=== PATIENT | female | born 1960 | race Caucasian/White ===

== ENCOUNTER → 2017-09-11 09:46 | Outpatient (CLI) | payer OTHER, SELFPAY ==
[2017-09-11 10:45] LABS: ALB/GLOB Ratio 0.9 RATIO (0.9-2.4); AST(SGOT) 15 U/L (15-37); Alanine Aminotransfer ALT/SGPT 24 U/L (13-56); Albumin, Serum 3.8 g/dL (3.2-5.0); Alkaline Phosphatase 95 U/L (45-117); Anion Gap 8 (5-15); BUN 12 mg/dL (7-18); BUN/Creat Ratio 11.8 RATIO (10-20); Calcium,Total 9.3 mg/dL (8.5-10.1); Chloride 105 mmol/L (98-107); Cholesterol 241 mg/dL (200); Creatinine, Serum 1.02 mg/dL (0.55-1.02); EST Glomerular Filtration Rate 59 mL/min (>60); Est Glom Filt Rate - Afr Amer 71 mL/min (>60); Globulin 4.1 g/dL (2.2-4.2); Glucose 106 mg/dL (74-106); High Density Lipoprotein 37 mg/dL; Potassium 3.9 mmol/L (3.5-5.1); Protein, Total 7.9 g/dL (6.4-8.2); Sodium Level 139 mmol/L (136-145); Thyroid Stim Hormone (TSH) 1.49 uIU/mL (0.358-3.74); Triglycerides 259 mg/dL; Very Low Density Lipoprotein 52 mg/dL (5-40)
[2017-09-12 10:39] LABS: Vitamin D,25 Hydroxy 54.6 ng/mL (19.95-100.01)
== END ==
PROVIDERS: Family Provider Internal Medicine; PCP Internal Medicine; Visit Provider Internal Medicine Endocrinology, Diabetes & Metabolism
DX: E03.8 Other specified hypothyroidism (principal); E55.9 Vitamin D deficiency, unspecified; E78.00 Pure hypercholesterolemia, unspecified
CPT/HCPCS: 36415; 80053; 80061; 82306; 84443

== ENCOUNTER → 2018-05-15 16:10 | Outpatient (CLI) | payer OTHER, SELFPAY ==
--- NOTE | 2018-05-15 16:34 | BI_ITS ---
MAMMOGRAPHY - BILATERAL SCREENING REASON FOR EXAM: Female, 57 years old. Routine annual screening examination. PERTINENT HISTORY: Aunt with breast cancer. Remote right excisional breast biopsy. TECHNIQUE: Digital bilateral breast grady (3D mammographic acquisition) in the CC and MLO projections. 2-D mediolateral oblique (MLO) and craniocaudad (CC) views of both breasts were obtained. CAD: Full Field Digital Mammography with Computer Added Detection was performed. COMPARISON: Comparison is made with prior study dated September 04, 2016 and May 10, 2015. FINDINGS: Breast Composition: The breasts are heterogeneously dense, which may obscure small masses. There are no dominant masses or suspicious calcifications. No other significant abnormalities are identified. There has been no significant change since the prior study. BI/SCREENING MAMM (CAD), BILAT IMPRESSION: Stable bilateral screening mammogram. Yearly follow-up mammogram recommended. (A) ASSESSMENT CATEGORY: BIRADS Category 1: Negative. A letter regarding these results will be sent to the patient by the facility within 30 days. Approximately 10% of breast cancers are not detected by mammography. A normal mammogram should not delay biopsy of a clinically suspicious abnormality. [id number] Electronically Signed: Demetrius Jackson MD at 8:17 EDT Tel [phone], Service support ,
== END ==
PROVIDERS: Family Provider Internal Medicine; PCP Internal Medicine; Referring Provider Internal Medicine; Visit Provider Internal Medicine
DX: Z12.31 Encounter for screening mammogram for malignant neoplasm of breast (principal)
CPT/HCPCS: 77063; 77067

== ENCOUNTER → 2018-06-10 07:24 | Outpatient (CLI) | payer OTHER, SELFPAY ==
[2018-06-10 09:20] LABS: ALB/GLOB Ratio 0.9 RATIO (0.9-2.4); AST(SGOT) 16 U/L (15-37); Alanine Aminotransfer ALT/SGPT 32 U/L (13-56); Albumin, Serum 3.6 g/dL (3.2-5.0); Alkaline Phosphatase 91 U/L (45-117); Anion Gap 13 (5-15); BUN 9 mg/dL (7-18); BUN/Creat Ratio 9.1 RATIO (10-20); Calcium,Total 8.4 mg/dL (8.5-10.1); Chloride 105 mmol/L (98-107); Cholesterol 199 mg/dL (200); Creatinine, Serum 0.98 mg/dL (0.55-1.02); EST Glomerular Filtration Rate 61 mL/min (>60); Est Glom Filt Rate - Afr Amer 74 mL/min (>60); Globulin 3.9 g/dL (2.2-4.2); Glucose 102 mg/dL (74-106); High Density Lipoprotein 34 mg/dL; Potassium 3.8 mmol/L (3.5-5.1); Protein, Total 7.5 g/dL (6.4-8.2); Sodium Level 144 mmol/L (136-145); Thyroid Stim Hormone (TSH) 1.24 uIU/mL (0.358-3.74); Triglycerides 227 mg/dL; Very Low Density Lipoprotein 45 mg/dL (5-40)
== END ==
PROVIDERS: Family Provider Internal Medicine; PCP Internal Medicine; Referring Provider Internal Medicine Endocrinology, Diabetes & Metabolism; Visit Provider Internal Medicine Endocrinology, Diabetes & Metabolism
DX: E03.8 Other specified hypothyroidism (principal); E78.2 Mixed hyperlipidemia
CPT/HCPCS: 36415; 80053; 80061; 84443

== ENCOUNTER → 2018-09-05 17:14 | Outpatient (CLI) | payer OTHER, SELFPAY ==
[2018-09-05 17:39] LABS: Bacteria 0 SEEN /hpf (None Seen); Mucous, Urine 0 SEEN /hpf (<or=2+); Red Blood Cells-Urine 0 SEEN /hpf (0-5); Squamous Epithelial Cells - UA 0 SEEN /hpf (5-10); White Blood Cells 0 SEEN /hpf (0-5)
[2018-09-05 18:58] LABS: Color, Urine Straw (Yellow); Glucose, Dipstick Normal (Normal); Ketone-Dipstick Negative (Negative); Leukocyte Esterase-Dipstick 500 /ul (Negative); Nitrite-Dipstick Negative (Negative); Occult Blood-Urine Negative /ul (Negative); Protein-Dipstick Negative (Negative); Specific Gravity, Urine 1.005 (1.002-1.030); Urine Bilirubin Dipstick Negative (Negative); Urine Clarity Clear (Clear); Urine Urobilinogen Normal (Normal)
== END ==
PROVIDERS: Family Provider Internal Medicine; PCP Internal Medicine; Referring Provider Internal Medicine; Visit Provider Internal Medicine
DX: R31.29 Other microscopic hematuria (principal)
CPT/HCPCS: 81001

== ENCOUNTER → 2018-11-12 | Outpatient (CLI) | payer OTHER, SELFPAY ==
--- NOTE | 2018-11-12 11:00 | RAD_ITS ---
STUDY: X-RAY - ABDOMEN/PELVIS REASON FOR EXAM: Female, 57 years old. Hematuria. History of kidney stones in both kidneys. TECHNIQUE: 2, supine frontal projections encompassing the abdomen and pelvis. COMPARISON: November 04, 2012. FINDINGS: Except for multiple small, bilateral calcified pelvic phleboliths, there are no additional pathologic calcifications. There is an unremarkable bowel gas pattern. Air and stool are identified within the rectum. There is no gross free air on these supine views. There is no plain film evident intra-abdominal mass or mass effect. No acute osseous abnormality. RAD/Abdomen Single View IMPRESSION: No pathologic calcifications overlying either renal outline or the expected course of either ureter. Multiple mid pelvic paramedian tiny calcified phleboliths. No evident obstruction. No gross free air on either of these supine views. Electronically Signed: Domingo Ortiz MD at 12:51 EDT , Service support ,
== END | disposition home or self-care (01) ==
LOC: RAD 10:52
PROVIDERS: Family Provider Internal Medicine; PCP Internal Medicine; Referring Provider Urology; Visit Provider Urology
DX: N20.0 Calculus of kidney (principal); R31.0 Gross hematuria
CPT/HCPCS: 74018

== ENCOUNTER 2018-11-26 11:50 | Emergency (ER) | payer OTHER, SELFPAY ==
--- NOTE | 2018-11-26 11:50 | EKG12_ITS ---
Test Reason : CP Blood Pressure : / mmHG Vent. Rate : 076 BPM Atrial Rate : 076 BPM P-R Int : 174 ms QRS Dur : 076 ms QT Int : 388 ms P-R-T Axes : 071 064 092 degrees QTc Int : 436 ms Normal sinus rhythm Normal ECG Confirmed by JAMIE MCINTOSH ([id number]), acquisitions editor AMIRA ORELLANA ([id number]) on 12/03/2018 9:12:28 AM Referred By: KINJAL Confirmed By:JAMIE MCINTOSH
[2018-11-26 11:51] VITALS: BP 158/83; PULSE 79; RESP 19; TEMP 36.9; O2SAT 98; BMI 32.0
--- NOTE | 2018-11-26 12:01 | ED.VIS.GEN ---
History of Present Illness Chief Complaint: Chest Pain Detail of Chief Complaint: Chief complaint is posterior right shoulder pain not chest pain Informant: Patient Onset: Today - 829 Context: Sudden Onset Timing: Continuous Quality: Pain Location: Posterior right shoulder Current Severity: Mild Maximum Severity: Severe Worsened by: Nothing per patient Relieved by: Nothing per patient Associated Symptoms: At onset had nausea Narrative: Patient is a middle-aged woman who presents with atraumatic acute posterior right shoulder pain. She has had this in the past. She is been told this is muscle. She was concerned because the pain was more intense today. She denies paresthesia, anesthesia or motor weakness. She denies chest pain. She denies shortness of breath. She denies orthopnea or PND. She denies history of coronary disease. He does have history of blood clots. She denies leg pain, swelling discoloration. She denies pleuritic chest pain. She does not have a clotting disorder. She denies neck pain. Prior similar symptoms: Yes Recent Illness/Hospitalization: No - Past Medical History (1) ADHD (attention deficit hyperactivity disorder) Status: Chronic (2) Fibromyalgia Status: Chronic (3) History of anxiety Status: Chronic Past Medical History - Allergies and Home Meds Allergies/Adverse Reactions: Allergies pindolol Allergy (Verified 11/26/18 11:54) Other quetiapine [From Seroquel] Allergy (Verified 11/26/18 11:54) Other Primary Care Physician: Echo Moses DO [Primary Care Provider] - Prior records reviewed: Yes Surgical History: noncontributory Lives: Alone Smoking Status: Never smoker Alcohol: None Review of Systems General: Denies: Chills, Fever, Malaise, Sweats, Weight loss Eyes: Denies: Visual changes - bilaterally, Blurred Vision - bilaterally, Diplopia ENT: Denies: Rhinorrhea, Sore throat Cardiovascular: Denies: Chest pain, Heart racing Respiratory: Denies: Dyspnea, Cough, Dyspnea on exertion, Orthopnea, Paroxysmal nocturnal dyspnea Musculoskeletal: Reports: Myalgias. Denies: Arthralgias, Neck pain, Back pain, Swelling, Extremity Pain Skin: Denies: Rash, Wounds Neurological: Denies: Weakness, Parasthesia, Numbness Psych: Reports: Depression, Anxiety Hematologic: Denies: Easy bruising, Easy bleeding Allergy: Denies: Uticaria, Swelling of the mouth Physical Exam Vital Signs/Narrative: Vital Signs Temp Pulse Resp BP Pulse Ox 11/26/18 11:51 98.4 F 79 19 H 158/83 H 98 Inital Vital Signs reviewed: Yes General: Well nourished, Well developed, No Acute Distress Head: Normocephalic, Atraumatic Eyes: Perrl, EOMI. Negative for: Pale conjunctiva, Scleral icterus ENT: Moist mucous membranes, No rhinorrhea Neck: Supple, Nontender, No lymphadenopathy, No JVD Cardiovascular: Regular rate, Regular rhythm, No murmurs, Normal S1, Normal S2 Respiratory: No distress, CTA bilaterally, Chest nontender Extremities: Nontender, No edema, - - There is no asymmetry, swelling, discoloration, leg vein distention, palpable cords or tenderness along the distribution of the deep venous system. Patient has reproducible pain over the trapezius latissimus muscle on the right. Stressing these muscles causes her increased pain and reproduces the pain she is experiencing. Axillary, median, radial and ulnar function intact. Skin: Normal color, No rash, No Trauma Neurological: Alert, Oriented x3, Cranial nerves II-XII grossly intact, Normal Strength, Normal Sensation Psychological: Normal affect, Normal Mood ED Disposition - Plan for ED Patient: Referrals: Echo Moses DO [Primary Care Provider] -
[2018-11-26 12:07] VITALS: BP 135/68; PULSE 79; RESP 23; O2SAT 95
--- NOTE | 2018-11-26 12:08 | ED.DEP ---
ED Disposition - Plan for ED Patient: Disposition: Home or Assisted Living Diagnosis: Musculoskeletal disorder involving upper trapezius muscle Instructions: ED Strain Muscle Ext Referrals: Echo Moses DO [Primary Care Provider] - As Needed
[2018-11-26 12:41] VITALS: BP 122/75; PULSE 82; RESP 24; O2SAT 93
== END 2018-11-26 12:43 | disposition home or self-care (01) ==
LOC: ED 12:28
PROVIDERS: Emergency Provider Emergency Medicine; Family Provider Internal Medicine; PCP Internal Medicine
DX: M25.511 Pain in right shoulder (principal); S29.012A Strain of muscle and tendon of back wall of thorax, initial encounter; M79.7 Fibromyalgia; Z86.718 Personal history of other venous thrombosis and embolism; X58.XXXA Exposure to other specified factors, initial encounter; Y93.89 Activity, other specified; Y92.89 Other specified places as the place of occurrence of the external cause; Y99.8 Other external cause status
CPT/HCPCS: 93005; 99283

== ENCOUNTER → 2018-12-30 | Outpatient (CLI) | payer OTHER, SELFPAY ==
[2018-12-30 10:32] LABS: Vitamin D,25 Hydroxy 29.7 ng/mL (29.95-100.01)
[2018-12-30 10:41] LABS: ALB/GLOB Ratio 0.9 RATIO (0.9-2.4); AST(SGOT) 19 U/L (15-37); Alanine Aminotransfer ALT/SGPT 31 U/L (13-56); Albumin, Serum 3.7 g/dL (3.2-5.0); Alkaline Phosphatase 92 U/L (45-117); Anion Gap 11 (5-15); BUN 10 mg/dL (7-18); BUN/Creat Ratio 10.8 RATIO (10-20); Calcium,Total 8.6 mg/dL (8.5-10.1); Chloride 107 mmol/L (98-107); Cholesterol 204 mg/dL (200); Creatinine, Serum 0.92 mg/dL (0.55-1.02); EST Glomerular Filtration Rate 66 mL/min (>60); Est Glom Filt Rate - Afr Amer 80 mL/min (>60); Globulin 3.9 g/dL (2.2-4.2); Glucose 118 mg/dL (74-106); High Density Lipoprotein 39 mg/dL; Potassium 3.9 mmol/L (3.5-5.1); Protein, Total 7.6 g/dL (6.4-8.2); Sodium Level 142 mmol/L (136-145); Thyroid Stim Hormone (TSH) 1.63 uIU/mL (0.358-3.74); Triglycerides 191 mg/dL; Very Low Density Lipoprotein 38 mg/dL (5-40)
== END | disposition home or self-care (01) ==
LOC: LAB 09:01
PROVIDERS: Family Provider Internal Medicine; PCP Internal Medicine; Referring Provider Internal Medicine Endocrinology, Diabetes & Metabolism; Visit Provider Internal Medicine Endocrinology, Diabetes & Metabolism
DX: E03.8 Other specified hypothyroidism (principal); E78.2 Mixed hyperlipidemia; E55.9 Vitamin D deficiency, unspecified
CPT/HCPCS: 36415; 80053; 80061; 82306; 84443

== ENCOUNTER 2019-03-13 09:29 | Emergency (ER) | payer OTHER, SELFPAY ==
[2019-03-13 09:31] VITALS: BP 155/84; PULSE 75; RESP 14; TEMP 36.2; O2SAT 97; BMI 32.2
--- NOTE | 2019-03-13 09:43 | EKG12_ITS ---
Test Reason : DYSRHYTHMIA Blood Pressure : / mmHG Vent. Rate : 074 BPM Atrial Rate : 074 BPM P-R Int : 180 ms QRS Dur : 080 ms QT Int : 396 ms P-R-T Axes : 044 071 100 degrees QTc Int : 439 ms Normal sinus rhythm Nonspecific T wave abnormality Abnormal ECG Confirmed by KORTNEY PALMER, DEBRA ([id number]), film editor supervisor BELINDA MANCERA ([id number]) on 03/17/2019 11:22:14 A M Referred By: STACI Confirmed By:SADA SHEETS MD
--- NOTE | 2019-03-13 09:44 | ED.VIS.DYS ---
History of Present Illness Chief Complaint: Shortness of Breath Informant: Patient Onset: Yesterday Activity at onset: Light Activity Timing: Intermittent Quality: Dyspnea on exertion Current Severity: Gone Maximum Severity: Severe Worsened by: Exertion. Not Worsened By: Coughing, Lying flat Relieved by: Rest Associated Symptoms: Negative for: Cough, Fever, Rhinorrhea, Sore throat Chest Pain: None Narrative: Significant exertional dyspnea since yesterday. Also yesterday while walking, she noticed that her right leg was hurting from her calf along the medial aspect of her knee/popliteal area and into her medial thigh. She states today, that is not bothering her. She never had any swelling in the leg. Concerned that she might have a pulmonary embolus causing this because she has otherwise been well, and she had one in the past. Patient states she thinks it was provoked by being on hormone replacement therapy for 2 weeks at that time. She is a non-smoker. - Past Medical History (1) Pulmonary embolism Status: Resolved (2) ADHD (attention deficit hyperactivity disorder) Status: Chronic (3) Fibromyalgia Status: Chronic (4) History of anxiety Status: Chronic Past Medical History - Allergies and Home Meds Allergies/Adverse Reactions: Allergies pindolol Allergy (Verified 03/13/19 09:31) Other quetiapine [From Seroquel] Allergy (Verified 03/13/19 09:31) Other Primary Care Physician: Echo Moses DO [Primary Care Provider] - Surgical History: noncontributory Lives: Spouse/ Significant Other Smoking Status: Never smoker Review of Systems General: Denies: Chills, Fever, Sweats Eyes: Denies: Visual changes - bilaterally, Diplopia ENT: Denies: Rhinorrhea, Sore throat Cardiovascular: Denies: Chest pain, Palpitations, Heart racing Respiratory: Reports: Dyspnea, Dyspnea on exertion. Denies: Cough Gastrointestinal: Denies: Abdominal pain, Nausea, Vomiting, Diarrhea, Melena, Hematochezia Genitourinary: Denies: Dysuria, Hematuria, Frequency Musculoskeletal: Reports: Extremity Pain - RLE yest. gone now.. Denies: Back pain, Swelling Skin: Denies: Rash, Wounds Neurological: Denies: Headache, Weakness, Numbness Physical Exam Vital Signs/Narrative: Vital Signs Temp Pulse Resp BP Pulse Ox 03/13/19 09:31 97.1 F L 75 14 155/84 H 97 Inital Vital Signs reviewed: Yes General: Well nourished, Well developed, No Acute Distress - Well-appearing, conversive in full sentences Head: Normocephalic, Atraumatic Eyes: Perrl, EOMI ENT: Moist mucous membranes, No rhinorrhea Neck: Supple, Nontender, No JVD Cardiovascular: Regular rate, Regular rhythm, Normal S1, Normal S2, Murmur - 1/6 systolic ejection. Negative for: Tachycardia Respiratory: No distress, CTA bilaterally, Chest nontender, - - No splinting on deep inspiration Abdomen: Soft, Nontender, Nondistended, Normal bowel sounds Back: Nontender, Normal Inspection Extremities: Nontender - And normal inspection, no palpable cords, No edema. Negative for: Tenderness, Calf Tenderness Skin: Normal color, No rash, No Trauma Neurological: Alert, Oriented x3, Cranial nerves II-XII grossly intact, Normal Strength, Normal Sensation, Normal Gait Psychological: Normal affect, Normal Mood Diagnostic/Tx/Re-eval Impressions Chest X-Ray 03/13/19 10:20 IMPRESSION: No acute cardiopulmonary findings Electronically Signed: Uriel Frost DO at 10:47 EDT Tel , Service support , Chest CTA 03/13/19 11:13 IMPRESSION: Normal CTA chest examination, without a demonstrated pulmonary embolism or arterial dissection. Electronically Signed: Jim Auguste MD at 12:55 EDT Tel , Service support , 03/13/19 10:20 Chest PA and Lateral [RAD] Stat 03/13/19 11:13 CTA Chest W/WO Contrast [CT] Stat Laboratory Results 03/13/19 03/13/19 03/13/19 09:50 09:50 09:50 WBC 4.8 RBC 4.99 Hgb 13.5 Hct 41.8 MCV 83.8 MCH 27.1 MCHC 32.3 RDW Std Deviation 45.6 H RDW Coeff of Jennifer 15.0 H Plt Count 244 MPV 9.8 Immature Gran % (Auto) 0.400 Neut % (Auto) 59.4 Lymph % (Auto) 30.4 Taylor % (Auto) 7.7 Eos % (Auto) 1.9 Baso % (Auto) 0.2 Absolute Neuts (auto) 2.9 Absolute Lymphs (auto) 1.47 Nucleated RBC % 0 D-Dimer Quant (PE/DVT) < 0.27 L Sodium 143 Potassium 3.9 Chloride 110 H Carbon Dioxide 26.0 Anion Gap 7 BUN 8 Creatinine 0.90 Estim Creat Clear Calc 50.16 Est GFR (MDRD) Af Amer 82 Est GFR (MDRD) Non-Af 68 BUN/Creatinine Ratio 8.9 L Glucose 112 H Calcium 8.6 Troponin I < 0.015 - Rhythm Strip Rhythm Strip: Sinus Rhythm Rate: 74 Ectopy: None - EKG Initial EKG Interpretation: Sinus Rhythm, No Acute Injury Pattern, Inverted T-Waves - laterally Prior: Changed - Medical Decision Making The patient does not have any dyspnea with walking today. This all occurred yesterday. Given the well's criteria, I think pulmonary embolus is not the most likely scenario here, therefore since she has a history of 1 and no signs or actual symptoms of a DVT acutely, her score is 1.5, making her appropriate for a d-dimer. This was obtained and is negative, below the lower limit of normal even. However, the patient is very anxious and wants a CT angiography of the chest anyway. We discussed risks of this, which I was trying to avoid her being exposed to, and we discussed all of this thoroughly and she understands the risks and wants the test. It was obtained and is normal showing no signs of a pulmonary embolus. Given the negative d-dimer, additionally she does not need to get the outpatient Doppler ultrasound of her lower extremity that she was scheduled for today and missed because of being in the emergency department. I discussed that with her but that will be up to her and her physician who she was advised to follow-up with. Not able to rule out a transient dysrhythmia, although she was only having symptoms when she exerted herself. I asked her if she could be having anxiety attacks she states no. Since she is asymptomatic at this time I think it is okay to discharge her home and have her follow-up. ED Disposition - Plan for ED Patient: Disposition: Home or Assisted Living Diagnosis: Dyspnea on exertion Instructions: ED Dyspnea Referrals: Echo Moses, [Primary Care Provider] - 1-2 Days if not improving
[2019-03-13 09:59] LABS: Absolute Lymphocyte Count 1.47 X10^3/uL (0.83-4.51); Absolute Neutrophil Count 2.9 X10^3/uL (2.0-7.7); Basophil# 0.01 X10^3/uL; Basophil% 0.2 % (0-1); Eosinophil# 0.09 X10^3/uL; Eosinophils% 1.9 % (0-5); Hematocrit 41.8 % (37-47); Hemoglobin 13.5 g/dL (12.0-15.0); Lymphocyte # 1.47 X10^3/ul (4.0); Lymphocyte % 30.4 % (19-41); Mean Corp Hgb Conc 32.3 g/dL (32-36); Mean Corpuscular Hgb 27.1 pg (27.0-32.0); Mean Corpuscular Volume 83.8 fL (81-99); Mean Platelet Vol. 9.8 fl (6.2-12.0); Monocyte# 0.37 X10^3/uL; Monocyte% 7.7 % (0-10); NRBC Flagged by Analyzer 0 % (0-5); Neutrophil # 2.87 X10^3/uL (2.7-7.7); Neutrophil % 59.4 % (47-70); Platelet Count 244 K/mm3 (150-450); RBC Distribution Width SD 45.6 fl (35.1-43.9); Red Blood Count 4.99 M/mm3 (4.2-5.4); White Blood Count 4.8 K/mm3 (4.4-11.0)
[2019-03-13 10:14] LABS: D-Dimer Quantitative (DVT/PE) < 0.27 FEU/ug/m (0.27-0.49)
[2019-03-13 10:20] LABS: Anion Gap 7 (5-15); BUN 8 mg/dL (7-18); BUN/Creat Ratio 8.9 RATIO (10-20); Calcium,Total 8.6 mg/dL (8.5-10.1); Chloride 110 mmol/L (98-107); EST Glomerular Filtration Rate 68 mL/min (>60); Est Glom Filt Rate - Afr Amer 82 mL/min (>60); Estimated Creatinine Clearance 50.16 ml/min; Glucose 112 mg/dL (74-106); Potassium 3.9 mmol/L (3.5-5.1); Sodium Level 143 mmol/L (136-145)
--- NOTE | 2019-03-13 10:20 | RAD_ITS ---
STUDY: X-RAY CHEST REASON FOR EXAM: Female, 58 years old. Shortness of breath. TECHNIQUE: PA and lateral views of the chest. COMPARISON: CTA dated June 11, 2014. FINDINGS: Cardiac silhouette unremarkable. Pulmonary vascularity unremarkable. Aorta unremarkable. No focal patchy airspace opacities. No pleural effusions. Slightly coarse lung markings with minimal atelectasis. Upper abdomen unremarkable. Osseous structures intact. No pneumothorax. RAD/Chest PA and Lateral IMPRESSION: No acute cardiopulmonary findings Electronically Signed: Uriel Frost DO at 10:47 EDT Tel , Service support ,
--- NOTE | 2019-03-13 11:13 | CT_ITS ---
STUDY: CTA CHEST REASON FOR EXAM: Female, 58 years old. Shortness of breath RADIATION DOSAGE (If Supplied By Facility): CTDIvol = ( 9.46 ) mGy, DLP = ( 356.41 ) mGycm TECHNIQUE: The examination was performed with the intravenous administration of 75cc IV Isovue 370. Post-processing of the angiographic images was performed, with multiplanar reformation and 3D reconstruction. Individualized dose optimization techniques were used for this CT. COMPARISON: 06/11/2014 FINDINGS: Normal enhancement of the main pulmonary artery and right and left pulmonary arteries. Normal enhancement of the bilateral peripheral pulmonary arteries. There is no demonstrated pulmonary embolism. Normal thoracic aorta and visualized great vessels. There is no demonstrated aortic dissection. Normal heart and pericardium. Normal mediastinum. Normal hilar regions. Normal visualized trachea and bronchi. The lungs are well expanded. Normal pulmonary parenchyma. Normal pleura. Normal chest wall structures. Normal osseous structures. Normal visualized upper abdomen. CT/CTA Chest W/WO Contrast IMPRESSION: Normal CTA chest examination, without a demonstrated pulmonary embolism or arterial dissection. Electronically Signed: Jim Auguste MD at 12:55 EDT Tel , Service support ,
[2019-03-13] MEDS: 0.9% Normal Saline 1,000 ML 999 ML IV (11:27)
[2019-03-13 11:44] VITALS: BP 141/88; PULSE 78; RESP 16; O2SAT 98
[2019-03-13 13:03] VITALS: BP 141/94; PULSE 74; RESP 18; O2SAT 96
[2019-03-13 13:26] VITALS: BP 141/88; PULSE 87; RESP 18; O2SAT 98
== END 2019-03-13 13:28 | disposition home or self-care (01) ==
PROVIDERS: Emergency Provider Emergency Medicine; Family Provider Internal Medicine; PCP Internal Medicine
DX: R06.09 Other forms of dyspnea (principal); F90.9 Attention-deficit hyperactivity disorder, unspecified type; M79.7 Fibromyalgia; F41.9 Anxiety disorder, unspecified; Z86.711 Personal history of pulmonary embolism; Z79.899 Other long term (current) drug therapy
CPT/HCPCS: 71046; 71275; 80048; 84484; 85025; 85379; 93005; 96360; 96361; 99284; J7030; Q9967; A4216

== ENCOUNTER → 2019-08-06 08:30 | Outpatient (CLI) | payer OTHER, SELFPAY ==
[2019-08-06 09:50] LABS: ALB/GLOB Ratio 1.1 RATIO (0.9-2.4); AST(SGOT) 15 U/L (15-37); Alanine Aminotransfer ALT/SGPT 29 U/L (13-56); Albumin, Serum 3.9 g/dL (3.2-5.0); Alkaline Phosphatase 93 U/L (45-117); Anion Gap 4 (5-15); BUN 8 mg/dL (7-18); Calcium,Total 8.7 mg/dL (8.5-10.1); Chloride 109 mmol/L (98-107); Cholesterol 204 mg/dL (200); EST Glomerular Filtration Rate 60 mL/min (>60); Est Glom Filt Rate - Afr Amer 73 mL/min (>60); Globulin 3.7 g/dL (2.2-4.2); Glucose 121 mg/dL (74-106); High Density Lipoprotein 39 mg/dL; Potassium 3.9 mmol/L (3.5-5.1); Protein, Total 7.6 g/dL (6.4-8.2); Sodium Level 140 mmol/L (136-145); Triglycerides 147 mg/dL; Very Low Density Lipoprotein 29 mg/dL (5-40)
[2019-08-06 10:06] LABS: Vitamin D,25 Hydroxy 36.9 ng/mL (29.95-100.01)
== END ==
PROVIDERS: Family Provider Internal Medicine; PCP Internal Medicine; Referring Provider Internal Medicine Endocrinology, Diabetes & Metabolism; Visit Provider Internal Medicine Endocrinology, Diabetes & Metabolism
DX: E03.8 Other specified hypothyroidism (principal); N20.0 Calculus of kidney; E55.9 Vitamin D deficiency, unspecified
CPT/HCPCS: 36415; 80053; 80061; 82306; 84443

== ENCOUNTER 2019-08-20 21:24 | Emergency (ER) | payer OTHER, SELFPAY ==
[2019-08-20 21:25] VITALS: BP 152/81; PULSE 109; RESP 16; TEMP 37.4; O2SAT 97; BMI 32.1
[2019-08-20 21:43] LABS: Bacteria 0 SEEN /hpf (None Seen); Mucous, Urine 0 SEEN /hpf (<or=2+)
[2019-08-20 21:45] LABS: Color, Urine Yellow (Yellow); Glucose, Dipstick Normal (Normal); Ketone-Dipstick Negative (Negative); Leukocyte Esterase-Dipstick 100 /ul (Negative); Nitrite-Dipstick Negative (Negative); Occult Blood-Urine 150 /ul (Negative); Protein-Dipstick 30 mg/dl (Negative); Urine Bilirubin Dipstick Negative (Negative); Urine Clarity Clear (Clear); Urine Urobilinogen Normal (Normal)
[2019-08-20 22:05] LABS: White Blood Cells 0-5 SEEN /hpf (0-5)
[2019-08-20 22:06] LABS: Red Blood Cells-Urine 5-10 SEEN /hpf (0-5); Squamous Epithelial Cells - UA 0-5 SEEN /hpf (5-10)
[2019-08-20 22:16] LABS: Absolute Lymphocyte Count 1.92 X10^3/uL (0.83-4.51); Absolute Neutrophil Count 6.6 X10^3/uL (2.0-7.7); Basophil# 0.02 X10^3/uL; Basophil% 0.2 % (0-1); Eosinophil# 0.05 X10^3/uL; Eosinophils% 0.5 % (0-5); Hemoglobin 14.5 g/dL (12.0-15.0); Lymphocyte # 1.92 X10^3/ul (4.0); Lymphocyte % 20.4 % (19-41); Mean Corp Hgb Conc 33.7 g/dL (32-36); Mean Corpuscular Hgb 28.4 pg (27.0-32.0); Mean Corpuscular Volume 84.3 fL (81-99); Mean Platelet Vol. 9.8 fl (6.2-12.0); Monocyte% 8.5 % (0-10); NRBC Flagged by Analyzer 0 % (0-5); Neutrophil # 6.58 X10^3/uL (2.7-7.7); Neutrophil % 70.2 % (47-70); Platelet Count 267 K/mm3 (150-450); RBC Distribution Width CV 14.2 % (11.6-14.6); RBC Distribution Width SD 43.8 fl (35.1-43.9); White Blood Count 9.4 K/mm3 (4.4-11.0)
[2019-08-20 22:30] LABS: Anion Gap 4 (5-15); BUN 9 mg/dL (7-18); BUN/Creat Ratio 8.8 RATIO (10-20); Chloride 105 mmol/L (98-107); Creatinine, Serum 1.02 mg/dL (0.55-1.02); EST Glomerular Filtration Rate 59 mL/min (>60); Est Glom Filt Rate - Afr Amer 71 mL/min (>60); Estimated Creatinine Clearance 44.26 ml/min; Glucose 89 mg/dL (74-106); Potassium 3.9 mmol/L (3.5-5.1); Sodium Level 137 mmol/L (136-145)
--- NOTE | 2019-08-20 22:55 | ED.DCSUM_ITS ---
History of Present Illness Chief Complaint: Abd Pain Informant: Patient - Abdominal Pain/Flank Pain Onset: Today Context: Gradual Onset Timing: Continuous Quality: Aching Location: Epigastric Current Severity: Mild Maximum Severity: Mild Worsened by: Nothing Relieved by: Nothing - tried no medications - Nausea/Vomiting/Emesis GI Symptom: Nausea. Negative for: Vomiting Onset: Days - 5 - Diarrhea/Melena/Hematochezia GI Symptom: - - last BM 3-4 hrs ago, no change on sx. Negative for: Diarrhea, Melena, Hematochezia Associated Symptoms: Negative for: Dysuria, Frequency, Hematuria, Urgency Narrative: Patient states she has felt nauseated for the last 5 days or so, it has not affected her appetite or ability to eat. She developed upper abdominal discomfort today. Progresses to the right. No radiation otherwise. She has not tried any medications or antacids at home prior to coming here. No history of any abdominal surgeries in the past. - Past Medical History (1) Hypothyroidism Status: Chronic (2) ADHD (attention deficit hyperactivity disorder) Status: Chronic (3) Fibromyalgia Status: Chronic (4) History of anxiety Status: Chronic (5) Pulmonary embolism Status: Resolved Past Medical History - Allergies and Home Meds Allergies/Adverse Reactions: Allergies pindolol Allergy (Verified 08/20/19 21:28) Other quetiapine [From Seroquel] Allergy (Verified 08/20/19 21:28) Other epinephrine Adverse Reaction (Verified 08/20/19 21:28) Other Primary Care Physician: Echo Moses DO [Primary Care Provider] - Surgical History: - - parathyroid gland excision (for hyperparathyroidism) Smoking Status: Never smoker Alcohol: None Review of Systems General: Denies: Chills, Fever, Sweats Eyes: Denies: Visual changes - bilaterally, Diplopia ENT: Denies: Bilateral ear pain, Rhinorrhea, Sore throat Cardiovascular: Denies: Chest pain, Palpitations Respiratory: Reports: Cough - chronic, mild, unchanged. Denies: Dyspnea, Sputum, Dyspnea on exertion, Orthopnea Gastrointestinal: Reports: Abdominal pain, Nausea. Denies: Vomiting, Diarrhea, Melena, Hematochezia Genitourinary: Denies: Dysuria, Hematuria, Frequency Musculoskeletal: Reports: Back pain - mild, chronic, unchanged. Denies: Swelling, Extremity Pain Skin: Denies: Rash, Wounds Neurological: Denies: Headache, Weakness, Numbness Physical Exam Vital Signs/Narrative: Vital Signs Temp Pulse Resp BP Pulse Ox 08/20/19 21:25 99.4 F H 109 H 16 152/81 H 97 Inital Vital Signs reviewed: Yes General: Well nourished, Well developed, No Acute Distress - well-appearing Head: Normocephalic, Atraumatic Eyes: Perrl, EOMI ENT: Moist mucous membranes, No rhinorrhea Neck: Supple, Nontender Cardiovascular: Regular rate, Regular rhythm, No murmurs Respiratory: No distress, CTA bilaterally, Chest nontender Abdomen: Soft, Nondistended, Normal bowel sounds, Tender - mild epigastrium, moderate LUQ; otherwise, NT including throughout R side Back: Nontender, Normal Inspection. Negative for: CVA tenderness Extremities: Nontender, No edema Skin: Normal color, No rash, No Trauma Neurological: Alert, Oriented x3, Cranial nerves II-XII grossly intact, Normal Strength, Normal Sensation, Normal Gait Psychological: Normal affect, Normal Mood Diagnostic/Tx/Re-eval Laboratory Results 08/20/19 08/20/19 08/20/19 21:36 22:10 22:10 WBC 9.4 RBC 5.10 Hgb 14.5 Hct 43.0 MCV 84.3 MCH 28.4 MCHC 33.7 RDW Std Deviation 43.8 RDW Coeff of Jennifer 14.2 Plt Count 267 MPV 9.8 Immature Gran % (Auto) 0.200 Neut % (Auto) 70.2 H Lymph % (Auto) 20.4 [place] % (Auto) 8.5 Eos % (Auto) 0.5 Baso % (Auto) 0.2 Absolute Neuts (auto) 6.6 Absolute Lymphs (auto) 1.92 Nucleated RBC % 0 Sodium 137 Potassium 3.9 Chloride 105 Carbon Dioxide 28.0 Anion Gap 4 L BUN 9 Creatinine 1.02 Estim Creat Clear Calc 44.26 Est GFR (MDRD) Af Amer 71 Est GFR (MDRD) Non-Af 59 L BUN/Creatinine Ratio 8.8 L Glucose 89 Calcium 9.0 Urine Color Yellow Urine Clarity Clear Urine pH 8.0 Ur Specific [place] 1.010 Urine Protein 30 H Urine Glucose (UA) Normal Urine Ketones Negative Urine Occult Blood 150 H Urine Nitrite Negative Urine Bilirubin Negative Urine Urobilinogen Normal Ur Leukocyte Esterase 100 H Urine RBC 5-10 SEEN Urine WBC 0-5 SEEN Ur Squamous Epith Cells 0-5 SEEN Urine Bacteria 0 SEEN Urine Mucus 0 SEEN - Medical Decision Making She states her urine chronically has microscopic hematuria as it does today. No pyuria. Her other blood counts are normal. I gave her a GI cocktail as well as some Zofran. It helped, I reexamination she has no tenderness in her left upper quadrant or epigastrium. I do not think she needs a CT scan at this time, I suspect this is upper GI in etiology and will give her a dose of simethicone, Protonix, and a prescription for a PPI and Zofran and advised that she follow- up. She is comfortable with that overall plan and we discussed reasons to return. ED Disposition - Plan for ED Patient: Disposition: Home or Assisted Living Diagnosis: Upper abdominal pain Instructions: GASTRITIS vs. ULCER Prescriptions: Pantoprazole Sodium [Protonix] 40 mg PO DAILY #14 tab Transmission Status: Pending to [id number] Ondansetron [Zofran Odt] 4 - 8 mg PO Q8H PRN PRN #12 tab PRN Reason: Nausea Transmission Status: Pending to [id number] Referrals: Echo Moses DO [Primary Care Provider] - 1 Week if not improving
[2019-08-20] MEDS: Ondansetron 4 MG/2 ML Vial IV (23:02)
[2019-08-20] MEDS: Mag Hydrox/Al Hydrox/Simeth 30 ML UDC PO (23:03)
[2019-08-21] MEDS: Pantoprazole Sodium 40 MG Tablet PO (00:24)
[2019-08-21 00:28] VITALS: BP 142/80; PULSE 83; RESP 18; O2SAT 97
== END 2019-08-21 00:28 | disposition home or self-care (01) ==
PROVIDERS: Emergency Provider Emergency Medicine; PCP Internal Medicine
DX: R10.10 Upper abdominal pain, unspecified (principal); E03.9 Hypothyroidism, unspecified; F90.9 Attention-deficit hyperactivity disorder, unspecified type; M79.7 Fibromyalgia; Z86.711 Personal history of pulmonary embolism; Z79.899 Other long term (current) drug therapy
CPT/HCPCS: 80048; 81001; 85025; 96374; 99283; A4216; J2405

== ENCOUNTER → 2019-09-04 | Outpatient (CLI) | payer OTHER, SELFPAY ==
[2019-09-04 16:41] VITALS: BMI 32.1
--- NOTE | 2019-09-04 17:08 | RAD_ITS ---
STUDY: X-RAY CHEST REASON FOR EXAM: Female, 58 years old. Upper back pain TECHNIQUE: PA and lateral chest. COMPARISON: 03/13/2019. FINDINGS: The lungs are clear and expanded. There is no demonstrated pleural abnormality. Normal size heart. Normal mediastinum and berto. Normal visualized pulmonary arteries. Normal visualized aortic arch and descending thoracic aorta. Normal visualized thoracic spine. Normal visualized ribs, clavicles, and shoulders. There is no demonstrated abnormality of the visualized soft tissue structures of the upper abdomen. RAD/Chest PA and Lateral IMPRESSION: Normal x-ray examination of the chest. Electronically Signed: Kristie Buchanan MD at 18:05 EST Tel , Service support ,
== END | disposition home or self-care (01) ==
LOC: MTRAD 17:08
PROVIDERS: PCP Internal Medicine; Referring Provider Physician Assistant; Visit Provider Physician Assistant
DX: M54.6 Pain in thoracic spine (principal)
CPT/HCPCS: 71046

== ENCOUNTER 2019-10-31 22:36 | Emergency (ER) | payer OTHER, SELFPAY ==
[2019-09-04 16:41] VITALS: BMI 32.1
[2019-10-31 22:36] VITALS: BP 119/88; PULSE 112; RESP 16; TEMP 36.6; O2SAT 98; BMI 32.1
[2019-10-31 22:44] VITALS: BP 119/88; PULSE 112; RESP 16; TEMP 36.6; O2SAT 98
[2019-10-31 22:49] VITALS: BP 126/83; PULSE 60; RESP 17; TEMP 36.6; O2SAT 100
[2019-10-31 23:11] LABS: Absolute Lymphocyte Count 1.99 X10^3/uL (0.83-4.51); Absolute Neutrophil Count 8.6 X10^3/uL (2.0-7.7); Basophil# 0.02 X10^3/uL; Basophil% 0.2 % (0-1); Eosinophil# 0.06 X10^3/uL; Eosinophils% 0.5 % (0-5); Hematocrit 42.4 % (37-47); Hemoglobin 14.3 g/dL (12.0-15.0); Lymphocyte # 1.99 X10^3/ul (4.0); Lymphocyte % 17.2 % (19-41); Mean Corp Hgb Conc 33.7 g/dL (32-36); Mean Corpuscular Hgb 28.2 pg (27.0-32.0); Mean Corpuscular Volume 83.6 fL (81-99); Mean Platelet Vol. 10.1 fl (6.2-12.0); Monocyte# 0.93 X10^3/uL; NRBC Flagged by Analyzer 0 % (0-5); Neutrophil # 8.55 X10^3/uL (2.7-7.7); Neutrophil % 73.8 % (47-70); Platelet Count 292 K/mm3 (150-450); RBC Distribution Width CV 13.9 % (11.6-14.6); RBC Distribution Width SD 42.2 fl (35.1-43.9); Red Blood Count 5.07 M/mm3 (4.2-5.4); White Blood Count 11.6 K/mm3 (4.4-11.0)
--- NOTE | 2019-10-31 23:21 | ED.DCSUM_ITS ---
- ER Visit Summary Date of Service: 10/31/19 Chief Complaint: Abdominal pain History of Present Illness: The patient is a 58 F who presents with abdominal pain that began yesterday. Patient states the pain is been intermittent since yesterday. Patient describes the pain as sharp. Patient states her pain is diffuse. Patient admits to nausea but denies any vomiting. Patient states nothing in particular makes it better or worse. Patient denies any diarrhea, melena, or hematochezia. Patient denies any dysuria but admits to some chronic hematuria. Patient admits to a low-grade fever of 100.3 at home. Patient also admits to diffuse myalgias. Physical Examination: Vital signs are stable. Patient is afebrile. Patient is in no acute distress. Oral mucosa is pink and moist. Neck is supple. Trachea is midline. There is no JVD noted. Heart was regular rate and rhythm. Lungs are clear and equal bilaterally. Abdomen is soft. Bowel sounds are normal. There is mild diffuse tenderness. There is no rebound or guarding noted. Skin is warm dry. Cranial nerves II through XII are intact. There are no focal motor or sensory deficits noted. Extremities are intact. There is no calf tenderness or edema. Test Results: CBC shows a slight leukocytosis of 11.6. Comprehensive metabolic profile was within normal limits. Urinalysis does not show any evidence of urinary tract infection. There were multiple left renal stones as well. There is no obstruction. This was interpreted by the radiologist and reviewed by myself. Emergency Department Course and Treatment: Patient was given IV fluids, morphi ne, and Zofran here. Patient was given her first dose of Augmentin here. Patient is given a prescription for Augmentin. Patient was instructed to follow-up with her primary care physician in 5 to 7 days. Patient understood and was agreeable with the plan. All questions were answered. Disposition: Discharge home Impression: 1. Diverticulitis This note was generated with [employer] dictation software. It may contain incorrect words, spelling, and punctuation that were not noted in review of the chart prior to signing ED Disposition - Plan for ED Patient: Disposition: Home or Assisted Living Diagnosis: Sigmoid diverticulitis Instructions: ED Diverticulitis Prescriptions: Amox/Clavulanate Tablet [Augmentin Tablet] 875 mg PO Q12H #20 tab Transmission Status: Pending to [facility] #[id number] Referrals: Echo Moses DO [Primary Care Provider] - 5-7 Days
[2019-10-31 23:27] LABS: ALB/GLOB Ratio 1.1 RATIO (0.9-2.4); AST(SGOT) 15 U/L (15-37); Alanine Aminotransfer ALT/SGPT 26 U/L (13-56); Albumin, Serum 4.1 g/dL (3.2-5.0); Alkaline Phosphatase 97 U/L (45-117); Anion Gap 6 (5-15); BUN 11 mg/dL (7-18); BUN/Creat Ratio 10.8 RATIO (10-20); Calcium,Total 9.3 mg/dL (8.5-10.1); Chloride 103 mmol/L (98-107); Creatinine, Serum 1.02 mg/dL (0.55-1.02); EST Glomerular Filtration Rate 59 mL/min (>60); Est Glom Filt Rate - Afr Amer 71 mL/min (>60); Estimated Creatinine Clearance 44.26 ml/min; Globulin 3.8 g/dL (2.2-4.2); Glucose 102 mg/dL (74-106); Lipase 365 U/L (73-393); Potassium 3.8 mmol/L (3.5-5.1); Protein, Total 7.9 g/dL (6.4-8.2); Sodium Level 136 mmol/L (136-145)
[2019-10-31 23:30] LABS: Bacteria 0 SEEN /hpf (None Seen); Mucous, Urine 0 SEEN /hpf (<or=2+); Red Blood Cells-Urine 0 SEEN /hpf (0-5); Squamous Epithelial Cells - UA 0 SEEN /hpf (5-10)
[2019-10-31] MEDS: 0.9% Normal Saline 1,000 ML 1000 ML IV (23:30)
[2019-10-31 23:31] LABS: Color, Urine Yellow (Yellow); Glucose, Dipstick Normal (Normal); Ketone-Dipstick Negative (Negative); Leukocyte Esterase-Dipstick 100 /ul (Negative); Nitrite-Dipstick Negative (Negative); Occult Blood-Urine Negative /ul (Negative); Protein-Dipstick Negative (Negative); Specific Gravity, Urine 1.005 (1.002-1.030); Urine Bilirubin Dipstick Negative (Negative); Urine Clarity Clear (Clear); Urine Urobilinogen Normal (Normal)
[2019-10-31 23:37] LABS: White Blood Cells 0-5 SEEN /hpf (0-5)
[2019-11-01] VITALS: BP 122/76; PULSE 86; RESP 18; TEMP 37.2; O2SAT 98
[2019-11-01] MEDS: Amox/Clavulanate 875 MG Tablet PO (01:54)
[2019-11-01 01:55] VITALS: BP 125/85; PULSE 103; RESP 17; TEMP 37.7; O2SAT 99
--- NOTE | 2019-11-01 23:06 | CT_ITS ---
STUDY: CT ABDOMEN AND PELVIS WITH CONTRAST REASON FOR EXAM: Female, 58 years old. ABDOMEN PAIN INTERMITTENT SINCE YESTERDAY,NAUSEA,FEVER AND ELEVATED WBC -- HX:PE,HYPOTHYROID,KIDNEY STONES WITH STENTS AND STONE RETRIVAL RADIATION DOSAGE (If Supplied By Facility): CTDIvol = ( 18.13 ) mGy, DLP = ( 940.76 ) mGycm TECHNIQUE: Transaxial images were obtained from the dome of the diaphragm to the symphysis pubis without oral contrast. Oral and amp; IV Gastrografin and amp; 100mL Isovue-300 was administered. Sagittal and coronal images were reconstructed. Individualized dose optimization techniques were used for this CT. COMPARISON: 06/10/2011. FINDINGS: There is bilateral basilar atelectasis. The visualized portions of the heart are within normal limits. Normal liver. Normal gallbladder and extrahepatic biliary system. Normal spleen. Normal pancreas. Normal right adrenal gland. Small nodularity within the body of the left adrenal gland measuring 0.9 x 0.7 cm, incompletely characterized by current study and stable in the interval suggestive of benign etiology. Normal right kidney. Multiple left-sided intrarenal stones, largest measuring 5.5 mm. Mild fullness of the left renal pelvis with surrounding stranding. Mild enhancement of the pelvic wall with a 9.2 mm stone within the left renal pelvis. Mild hiatal hernia. Normal small intestine. Multilevel diverticulosis, more significant along the sigmoid. There is thickening of the wall at the level of the sigmoid near the junction with descending colon with stranding/inflammation of the fatty peritoneum compatible with diverticulitis. No abscess. The appendix is visualized and appears normal. Normal abdominal aorta. Normal inferior vena cava. Normal retroperitoneum. Normal urinary bladder. Anteverted uterus. Mild free fluid in the cul-de-sac. Normal abdominal wall. Degenerative disease at L5-S1. CT/Abdomen/Pelvis WITH Contrast IMPRESSION: Diverticulitis at the level of the sigmoid with no abscess. Multiple left-sided intrarenal stones with largest measuring 9.2 mm and seen at the level of the left renal pelvis just beyond the outline of the left kidney. Electronically Signed: Martha King MD at 1:31 EDT , Service support ,
== END 2019-11-01 01:56 | disposition home or self-care (01) ==
PROVIDERS: Emergency Provider Emergency Medicine; PCP Internal Medicine
DX: K57.32 Diverticulitis of large intestine without perforation or abscess without bleeding (principal)
CPT/HCPCS: 74177; 80053; 81001; 83690; 85025; 96360; 96361; 99284; J7030; Q9967; A4216; J2405

== ENCOUNTER → 2019-11-20 | Outpatient (CLI) | payer OTHER, SELFPAY ==
[2019-10-31 22:36] VITALS: BMI 32.1
[2019-11-20 11:53] LABS: Vitamin D,25 Hydroxy 48.5 ng/mL
[2019-11-20 12:07] LABS: AST(SGOT) 18 U/L (15-37); Alanine Aminotransfer ALT/SGPT 31 U/L (13-56); Albumin, Serum 3.9 g/dL (3.2-5.0); Alkaline Phosphatase 93 U/L (45-117); Anion Gap 6 (5-15); BUN 7 mg/dL (7-18); BUN/Creat Ratio 7.3 RATIO (10-20); Calcium,Total 9.5 mg/dL (8.5-10.1); Chloride 105 mmol/L (98-107); Cholesterol 215 mg/dL (200); Creatinine, Serum 0.96 mg/dL (0.55-1.02); EST Glomerular Filtration Rate 63 mL/min (>60); Est Glom Filt Rate - Afr Amer 76 mL/min (>60); Globulin 3.8 g/dL (2.2-4.2); Glucose 119 mg/dL (74-106); High Density Lipoprotein 37 mg/dL; Protein, Total 7.7 g/dL (6.4-8.2); Sodium Level 139 mmol/L (136-145); Triglycerides 215 mg/dL; Very Low Density Lipoprotein 43 mg/dL (5-40)
== END | disposition home or self-care (01) ==
LOC: LAB 10:37
PROVIDERS: PCP Internal Medicine; Referring Provider Internal Medicine Endocrinology, Diabetes & Metabolism; Visit Provider Internal Medicine Endocrinology, Diabetes & Metabolism
DX: E03.8 Other specified hypothyroidism (principal); E78.2 Mixed hyperlipidemia; E55.9 Vitamin D deficiency, unspecified
CPT/HCPCS: 36415; 80053; 80061; 82306; 84443

== ENCOUNTER 2019-12-19 00:36 | Emergency (ER) | payer OTHER, SELFPAY ==
[2019-12-19 00:37] VITALS: BP 148/82; PULSE 80; RESP 16; TEMP 36.9; O2SAT 98; BMI 32.1
--- NOTE | 2019-12-19 01:05 | ED.VIS.GEN ---
History of Present Illness Chief Complaint: Flank Pain Informant: Patient Narrative: Presents with left-sided flank pain. She has a history of kidney stones. She had a CAT scan last month that showed multiple bilateral renal stones. She thinks 1 of them dislodged and came down. She is having deep aching pain in the left flank. She took nothing for it. She is feeling nauseous. She has seen urology in the past Dr. Riley. Severity is moderate. No injury. It came on an hour ago acutely - Past Medical History (1) Upper back pain on left side Status: Acute (2) ADHD (attention deficit hyperactivity disorder) Status: Chronic (3) Fibromyalgia Status: Chronic (4) History of anxiety Status: Chronic (5) Hypothyroidism Status: Chronic (6) Pulmonary embolism Status: Resolved Past Medical History - Allergies and Home Meds Allergies/Adverse Reactions: Allergies bee venom protein (honey bee) Allergy (Verified 12/19/19 00:39) Anaphylaxis pindolol Allergy (Verified 12/19/19 00:39) Other quetiapine [From Seroquel] Allergy (Verified 12/19/19 00:39) Other Primary Care Physician: Echo Moses DO [Primary Care Provider] - Prior records reviewed: Yes Past Medical History: - - See problem list, kidney stones Surgical History: - - parathyroid gland excision (for hyperparathyroidism) Lives: With Family Smoking Status: Never smoker Alcohol: None Drugs: None Review of Systems General: Denies: Chills, Fever, Sweats Eyes: Denies: Visual changes - bilaterally, Diplopia ENT: Denies: Rhinorrhea, Sore throat Cardiovascular: Denies: Chest pain, Palpitations Respiratory: Denies: Dyspnea, Cough, Dyspnea on exertion Gastrointestinal: Reports: Nausea. Denies: Abdominal pain, Vomiting, Diarrhea, Melena, Hematochezia Genitourinary: Denies: Dysuria, Hematuria, Frequency Musculoskeletal: Reports: Back pain - Left flank pain. Denies: Extremity Pain Skin: Denies: Rash, Wounds Neurological: Denies: Headache, Weakness, Numbness Physical Exam Vital Signs/Narrative: Vital Signs Temp Pulse Resp BP Pulse Ox 12/19/19 00:37 98.4 F 80 16 148/82 H 98 General: Well nourished, Well developed, No Acute Distress Head: Normocephalic, Atraumatic Eyes: Perrl, EOMI ENT: Moist mucous membranes, No rhinorrhea Neck: Supple, Nontender Cardiovascular: Regular rate, Regular rhythm, No murmurs Respiratory: No distress, CTA bilaterally, Chest nontender Abdomen: Soft, Nontender, Nondistended, Normal bowel sounds Back: Nontender, Normal Inspection Extremities: Nontender, No edema Skin: Normal color, No rash Neurological: Alert, Oriented x3, Cranial nerves II-XII grossly intact, Normal Strength, Normal Sensation Psychological: Normal affect, Normal Mood Diagnostic/Tx/Re-eval - Medical Decision Making Lab work obtained. Patient given IV fluids and Tylenol. She did not want any IV pain medicine. Given Zofran for nausea. I discussed doing a CAT scan with the patient. She just had one last month which showed multiple renal stones. I suspect she has a renal stone in her left flank region. She wants to hold off at this time. We discussed the benefit and risk.. Lab work shows no leukocytosis. Urinalysis shows significant blood. There is white blood cells but no bacteria. I suspect the patient has a kidney stone. She is feeling better after treatment. She did have one emesis. She will be discharged with Zofran and a short course of [place] given a home pack and will follow-up with Dr. Riley ED Disposition - Plan for ED Patient: Disposition: Home or Assisted Living Diagnosis: Kidney stone on left side Instructions: ED Renal Stone w Colic Prescriptions: Hydrocodone Bitart/Apap 5-325 [[place] 5MG-325MG] 1 - 2 tab PO Q6H PRN PRN 3 Days #10 tab PRN Reason: Pain Prescription Printed Ondansetron [Zofran Odt] 8 mg PO Q8H PRN PRN #20 tab PRN Reason: Nausea Prescription Printed Referrals: Clay Riley MD [STAFF PHYSICIAN] -
[2019-12-19 01:21] LABS: Absolute Lymphocyte Count 2.56 X10^3/uL (0.83-4.51); Absolute Neutrophil Count 4.5 X10^3/uL (2.0-7.7); Basophil# 0.03 X10^3/uL; Basophil% 0.4 % (0-1); Eosinophil# 0.17 X10^3/uL; Eosinophils% 2.1 % (0-5); Hematocrit 41.4 % (37-47); Hemoglobin 13.8 g/dL (12.0-15.0); Lymphocyte # 2.56 X10^3/ul (4.0); Lymphocyte % 32.2 % (19-41); Mean Corp Hgb Conc 33.3 g/dL (32-36); Mean Corpuscular Hgb 28.5 pg (27.0-32.0); Mean Corpuscular Volume 85.4 fL (81-99); Mean Platelet Vol. 9.9 fl (6.2-12.0); Monocyte% 8.8 % (0-10); NRBC Flagged by Analyzer 0 % (0-5); Neutrophil # 4.46 X10^3/uL (2.7-7.7); Neutrophil % 56.2 % (47-70); Platelet Count 283 K/mm3 (150-450); RBC Distribution Width SD 43.3 fl (35.1-43.9); Red Blood Count 4.85 M/mm3 (4.2-5.4); White Blood Count 7.9 K/mm3 (4.4-11.0)
[2019-12-19 01:25] LABS: Anion Gap 6 (5-15); BUN 11 mg/dL (7-18); BUN/Creat Ratio 10.8 RATIO (10-20); Chloride 106 mmol/L (98-107); Creatinine, Serum 1.02 mg/dL (0.55-1.02); EST Glomerular Filtration Rate 59 mL/min (>60); Est Glom Filt Rate - Afr Amer 71 mL/min (>60); Estimated Creatinine Clearance 43.71 ml/min; Glucose 132 mg/dL (74-106); Potassium 3.7 mmol/L (3.5-5.1); Sodium Level 141 mmol/L (136-145)
[2019-12-19] MEDS: 0.9% Normal Saline 1,000 ML 250 ML IV (01:38)
[2019-12-19] MEDS: Ondansetron 4 MG/2 ML Vial IV (01:38)
[2019-12-19 01:50] LABS: Bacteria 0 SEEN /hpf (None Seen); Mucous, Urine 0 SEEN /hpf (<or=2+)
[2019-12-19 01:52] LABS: Color, Urine Yellow (Yellow); Glucose, Dipstick Normal (Normal); Ketone-Dipstick 5 mg/dl (Negative); Leukocyte Esterase-Dipstick 500 /ul (Negative); Nitrite-Dipstick Negative (Negative); Occult Blood-Urine 250 /ul (Negative); Protein-Dipstick 100 mg/dl (Negative); Specific Gravity, Urine 1.025 (1.002-1.030); Urine Bilirubin Dipstick Negative (Negative); Urine Clarity Sl. Cloudy (Clear); Urine Urobilinogen Normal (Normal)
[2019-12-19 01:59] LABS: Red Blood Cells-Urine 50-100 SEEN /hpf (0-5); Squamous Epithelial Cells - UA 5-10 SEEN /hpf (5-10); White Blood Cells >100 SEEN /hpf (0-5)
[2019-12-19 02:37] VITALS: BP 132/60; PULSE 75; RESP 18; O2SAT 98
[2019-12-19] MEDS: Acetaminophen 500 MG Tablet 1000 MG PO (02:58)
== END 2019-12-19 02:55 | disposition home or self-care (01) ==
LOC: ED 02:16
PROVIDERS: Emergency Provider Emergency Medicine; PCP Internal Medicine
DX: N20.0 Calculus of kidney (principal); F90.9 Attention-deficit hyperactivity disorder, unspecified type; M79.7 Fibromyalgia; F41.9 Anxiety disorder, unspecified; Z86.711 Personal history of pulmonary embolism; Z79.899 Other long term (current) drug therapy
CPT/HCPCS: 80048; 81001; 85025; 96361; 96374; 99284; J7030; A4216; J2405

== ENCOUNTER 2019-12-26 10:01 | Day surgery (SDC) | payer OTHER, SELFPAY ==
[2019-12-25 15:19] LABS: Probe Check PASS; Specimen Processing Control PASS
[2019-12-26] VITALS (7 sets, daily range): BP systolic 120–151; BP diastolic 68–92; PULSE 77–88; RESP 15–22; TEMP 36.7–37; O2SAT 95–100; BMI 31.5
[2019-12-26] MEDS: Lactated Ringers 1,000 ML 100 ML IV ×2 (10:30→13:41)
[2019-12-26] MEDS: Cefazolin 2 GM in 0.9% Normal Saline 100 ML IV (12:10)
--- NOTE | 2019-12-26 12:23 | PCM.HP.STD ---
History of Present Illness Date of Admission: 12/26/19 Chief Complaint: Left renal calculi The patient is a 59 year old female who presents with a stone in the left kidney presents today for treatment with shockwave lithotripsy. Past Medical History Past Medical History (Chronic Problems): Chronic Problems (Last Reviewed 09/04/19 @ 17:06 by Sierra Tenorio) Hypothyroidism (Chronic) Fibromyalgia (Chronic) ADHD (attention deficit hyperactivity disorder) (Chronic) History of anxiety (Chronic) Medical History: Medical History (Last Reviewed 09/04/19 @ 17:06 by Sierra Tenorio) Back pain M54.9 Glaucoma H40.9 Hemorrhoids K64.9 Kidney stones N20.0 Parathyroid abnormality E21.5 Thyroid disease E07.9 Allergies bee venom protein (honey bee) Allergy (Verified 12/26/19 10:17) Anaphylaxis quetiapine [From Seroquel] Allergy (Verified 12/26/19 10:17) Other Home Medications: Ambulatory Orders Medication Instructions Recorded Calcium Citrate/Vitamin D3 1 ea PO DAILY 03/13/19 [Citracal-Vit D3 200 mg-250 Tab] Duloxetine HCl 60 mg PO DAILY 03/13/19 Ergocalciferol [Vitamin D] 50,000 units PO QWEEK 03/13/19 Lamotrigine 200 mg PO QHS 03/13/19 Latanoprost 1 drp EACH EYE DAILY 03/13/19 Olanzapine 2.5 mg PO QHS 03/13/19 Ondansetron [Zofran Odt] 4 - 8 mg PO Q8H PRN PRN #12 tab 08/21/19 Pseudoephedrine [Sudafed] 60 mg PO Q6H PRN PRN 10/31/19 Surgical History: - - parathyroid gland excision (for hyperparathyroidism) Smoking Status: Never smoker Tobacco Use: Non-smoker Review of Systems Constitutional: Denies: Chills, Fever, Weight Change HEENT: Denies: Head Aches, Sinus Congestion, Sinus Drainage Cardiovascular: Denies: Chest Pain, Palpitations Respiratory: Denies: Cough, Shortness of breath at rest, Sputum production Gastrointestinal: Denies: Abdominal Pain, Nausea, Vomiting Genitourinary: Denies: Dysuria Musculoskeletal: Denies: Joint Pain, Joint Tenderness Skin: Denies: Rash, Wounds Neurological: Denies: Numbness, Tingling, Focal weakness Psychiatric: Denies: Anxiety, Depression, Homicidal Ideations, Suicidal Ideations Hematologic/ Lymphatic: Denies: Easy Bruising, Easy Bleeding VTE Information - Inpt Only VTE Present on Admission: No VTE Mechan Device Prophylaxis: SCD's - Physical Exam Vitals/I&O's: Vital Signs Temp Pulse Resp BP Pulse Ox 98.6 F 77 15 133/68 H 97 12/26/19 10:18 12/26/19 10:18 12/26/19 10:18 12/26/19 10:18 12/26/19 10:18 Oxygen Delivery Method Room Air Weight: 75.7 kg Body Mass Index (BMI) 31.5 General: Alert, Oriented x3, Cooperative HEENT: Atraumatic, PERRLA, EOMI, Normocephalic Neck: Supple, No JVD, Negative Carotid Bruits Lungs: Clear to auscultation, Normal air movement Cardiovascular: Regular rate, No murmurs Abdomen: Bowel Sounds Present, Soft, Non Tender Extremities: No edema, Capillary Refill Less than 3 Seconds Skin: No rashes, No breakdown Musculoskeletal: No Tenderness to Palpation of Joints or Extremities Neurological: Cranial nerves II-XII grossly intact Psych/Mental Status: Normal Affect, Appropriate Laboratory Results 12/25/19 12:00: COVID-19 (EZEQUIEL) Negative Current Medications Cefazolin Sodium 2 gm/ Sodium (Chloride) 110 mls @ 150 mls/hr IV PREOP ONE Stop: 12/26/19 14:43 Lactated Ringer's () 1,000 mls @ 100 mls/hr IV .Q10H CATHERINE Last Admin: 12/26/19 10:30 Dose: 100 mls/hr Documented by: Assessment/Plan All Active Problems (Last Reviewed 09/04/19 @ 17:06 by Sierra Tenorio) Upper back pain on left side (Acute) Pulmonary embolism (Resolved) Plan to proceed with shockwave lithotripsy cystoscopy and left stent placement today in the operating room.
--- NOTE | 2019-12-26 12:24 | DCINST_ITS ---
Discharge Diet: No Restrictions, Light diet - advance as tolerated Discharge Activity: Return to Normal Activity, May Not Drive - for 2 days., May not drive while taking narcotic pain medications. Additional Activity Instructions:: Please be aware that pain medications may cause nausea. You should typically eat light foods as you take your pain medication. Pain medication may cause constipation, if this is a problem for you, please discuss with your doctor. Suture Line Care: Avoid Pulling/Pushing, Avoid Pinching/Bending Allergies/Adverse Reactions: Allergies bee venom protein (honey bee) Allergy (Verified 12/26/19 10:17) Anaphylaxis quetiapine [From Seroquel] Allergy (Verified 12/26/19 10:17) Other Medications to take at Discharge Calcium Citrate/Vitamin D3 [Citracal-Vit D3 200 mg-250 Tab] 1 ea PO DAILY 03/13/19 Duloxetine HCl 60 mg PO DAILY 03/13/19 Ergocalciferol [Vitamin D] 50,000 units PO QWEEK 03/13/19 Lamotrigine 200 mg PO QHS 03/13/19 Latanoprost 1 drp EACH EYE DAILY 03/13/19 Olanzapine 2.5 mg PO QHS 03/13/19 Ondansetron [Zofran Odt] 4 - 8 mg PO Q8H PRN PRN #12 tab 08/21/19 Pseudoephedrine [Sudafed] 60 mg PO Q6H PRN PRN 10/31/19 Primary Care Physician: Echo Moses DO [Primary Care Provider] - Test Results: Test results from this visit will be discussed in further detail at your follow- up appointment, if applicable. Please Follow Up With: Clay Riley MD When: please call to make an appointment.
--- NOTE | 2019-12-26 13:08 | OP.PCM_ITS ---
Report of Operation Date of Procedure: 12/26/19 Pre-Operative Diagnosis: Left renal calculi Post-Operative Diagnosis: The same Surgery/Procedure Performed:: cystoscopy and left stent placement left extracorporeal shockwave lithotripsy Description of Surgical Findings:: Patient was taken back to the operating room after smooth induction of general anesthesia she was placed supine on the table were then placed in dorsolithotomy position the urethra and vaginal area prepped and draped in usual sterile fashion, went to the bladder with a 21 Arabic rigid cystourethroscope cannulated the left ureter orifice with a Glidewire advanced a stent up into the left kidney. Once a stent was in good position and we repositioned the patient on the table we used triangulation technique and fluoroscope to identify the stone in the left kidney F2 focal point of the machine was placed in the stone a total of 3000 shockwaves were delivered to the stone under fluoroscopic guidance the stone broke up with a little tiny pieces appear to be a complete fragmentation of the stone elective stent in place and I will can see the patient next week to remove the stent. Type of Anesthesia:: General Drains: stent - Admit VTE Documentation VTE Present on Admission: No VTE Mechan Device Prophylaxis: SCD's
[2019-12-26] MEDS: Ketorolac 15 MG/ML Vial IV (13:38)
[2019-12-26] MEDS: oxyCODONE 5 MG Tablet PO (14:40)
== END 2019-12-26 15:55 | disposition home or self-care (01) ==
LOC: SDC 10:03 → AC 10:04
PROVIDERS: Anesthesiology; PCP Internal Medicine; Referring Provider Urology; Visit Provider Urology
PROC: (CPT 50590; principal; 2019-12-26 11:50)
DX: N20.0 Calculus of kidney (principal); E03.9 Hypothyroidism, unspecified; M79.7 Fibromyalgia; F90.9 Attention-deficit hyperactivity disorder, unspecified type; F41.9 Anxiety disorder, unspecified; E78.00 Pure hypercholesterolemia, unspecified; F32.9 Major depressive disorder, single episode, unspecified; G47.33 Obstructive sleep apnea (adult) (pediatric); Z11.59 Encounter for screening for other viral diseases; Z79.899 Other long term (current) drug therapy; Z86.718 Personal history of other venous thrombosis and embolism; Z86.711 Personal history of pulmonary embolism
CPT/HCPCS: 00873; 50590; 52332; 87635; G2023; J7120; C2617; J2405; U0003

== ENCOUNTER → 2019-12-30 14:52 | Outpatient (CLI) | payer OTHER, SELFPAY ==
[2019-12-26 10:18] VITALS: BMI 31.5
--- NOTE | 2019-12-30 14:55 | RAD_ITS ---
STUDY: X-RAY - ABDOMEN/PELVIS REASON FOR EXAM: Female, 59 years old. LEFT SIDE STONE, FOLLOW UP TECHNIQUE: Single AP view of the abdomen / pelvis. COMPARISON: Comparison is made with prior examination dated November 12, 2018. FINDINGS: Normal visualized lung bases. There is a moderate amount of colonic fecal material. A left-sided double-J stent catheter is seen with the proximal tip in the region of the renal pelvis and the distal tip in the bladder. 3 mm calculus is seen in the midpole calyx of the left kidney. There are calcified phleboliths in the pelvis. Normal visualized osseous structures. RAD/Abdomen Single View IMPRESSION: A left-sided double-J stent catheter is seen. 3 mm calculus is seen in the mid pole calyx of the left kidney. Electronically Signed: Demetrius Jackson, at 9:10 EDT , Service support ,
== END ==
PROVIDERS: PCP Internal Medicine; Referring Provider Urology; Visit Provider Urology
DX: N20.0 Calculus of kidney (principal)
CPT/HCPCS: 74018

== ENCOUNTER 2020-02-06 17:49 | Emergency (ER) | payer OTHER, SELFPAY ==
[2019-12-26 10:18] VITALS: BMI 31.5
[2020-02-06] VITALS (7 sets, daily range): BP systolic 127–150; BP diastolic 79–89; PULSE 68–89; RESP 15–19; TEMP 36.6–37.1; O2SAT 95–98; BMI 31.1
--- NOTE | 2020-02-06 18:17 | CT_ITS ---
STUDY: CTA CHEST REASON FOR EXAM: Female, 59 years old. Complaining of SOB WITH EXERTION SINCE SUNDAY, history of PE IN PAST RADIATION DOSAGE (If Supplied By Facility): CTDIvol = ( 11.18 ) mGy, DLP = ( 406.09 ) mGycm TECHNIQUE: The examination was performed with the intravenous administration of IV 75mL Isovue-300. Post-processing of the angiographic images was performed, with multiplanar reformation and 3D reconstruction. Individualized dose optimization techniques were used for this CT. COMPARISON: March 13, 2019 FINDINGS: There is minimal stable atelectasis and/or scarring within the lower lobes. Normal enhancement of the main pulmonary artery and right and left pulmonary arteries. Normal enhancement of the bilateral peripheral pulmonary arteries. There is no demonstrated pulmonary embolism. Normal thoracic aorta and visualized great vessels. There is no demonstrated aortic dissection. Normal heart and pericardium. Normal mediastinum. Normal hilar regions. Normal visualized trachea and bronchi. Normal chest wall structures. Normal osseous structures. The limited images of the upper abdomen demonstrate a diffusely low attenuation liver consistent with fatty infiltration. CT/CTA Chest W/WO Contrast IMPRESSION: No demonstrated pulmonary embolism or arterial dissection. No acute cardiopulmonary process. Fatty infiltration of the liver. Electronically Signed: Socorro Garcia MD at 20:00 EDT Tel , Service support ,
--- NOTE | 2020-02-06 18:18 | ED.VISSUMM ---
- ER Visit Summary Date of Service: 02/06/20 Chief Complaint: Shortness of breath History of Present Illness: The patient is a 59 F who presents with shortness of breath that began 5 days ago. Patient states it has been waxing and waning over the past 5 days. Patient states it is worse with any exertion. Patient states it is better with rest. Patient denies any cough. Patient does admit to general myalgias. Patient also admits to some fatigue. Patient states her temperature is been 99.4 at home. Patient denies any chest pain. Patient states she was having some pain in her left breast yesterday but this has resolved. Patient admits to nausea but denies any vomiting. Patient denies any sore throat or rhinorrhea. Patient states she saw her primary care physician who did an EKG in the office. Patient states this was abnormal but she does not know exactly what was abnormal. Patient states she has a history of PE but states this occurred while she was on hormone replacement therapy. Patient is currently not on hormone replacement therapy. Patient did have recent lithotripsy. Physical Examination: Vital signs are stable. Patient is afebrile. Patient is in no acute distress. Neck is supple. Trachea is midline. There is no JVD noted. Heart was regular rate and rhythm. Lungs are clear and equal bilaterally. Abdomen is soft. Bowel sounds are normal. There is no tenderness. There is no rebound or guarding noted. Skin is warm dry. Cranial nerves II through XII are intact. There are no focal motor or sensory deficits noted. Extremities are intact. There is no calf tenderness or edema. Test Results: CBC was normal. Basic metabolic profile was essentially within normal limits. Lactate was slightly elevated 2.1. Troponin was normal. CTA of the chest was obtained. There is no evidence of pulmonary embolism. Respiratory panel was negative. COVID swab was negative. Emergency Department Course and Treatment: Patient was given IV fluids. Patient was given albuterol inhaler. Patient was feeling somewhat better after this. Patient was advised of her results. Patient was instructed to use her inhaler as needed for any dyspnea. Patient was instructed to follow-up with her primary care physician in 3 to 5 days. Patient understood and was agreeable with the plan. All questions were answered. Disposition: Discharge home Impression: Dyspnea This note was generated with Integration Managementation software. It may contain incorrect words, spelling, and punctuation that were not noted in review of the chart prior to signing ED Disposition - Plan for ED Patient: Disposition: Home or Assisted Living Diagnosis: Dyspnea Instructions: ED Dyspnea Referrals: Echo Moses DO [Primary Care Provider] - 3-5 Days
[2020-02-06 18:54] LABS: Absolute Lymphocyte Count 2.33 X10^3/uL (0.83-4.51); Absolute Neutrophil Count 3.6 X10^3/uL (2.0-7.7); Basophil# 0.02 X10^3/uL; Basophil% 0.3 % (0-1); Eosinophil# 0.13 X10^3/uL; Eosinophils% 1.9 % (0-5); Hematocrit 43.5 % (37-47); Hemoglobin 14.4 g/dL (12.0-15.0); Lymphocyte # 2.33 X10^3/ul (4.0); Lymphocyte % 34.5 % (19-41); Mean Corp Hgb Conc 33.1 g/dL (32-36); Mean Corpuscular Hgb 28.3 pg (27.0-32.0); Mean Corpuscular Volume 85.6 fL (81-99); Mean Platelet Vol. 9.8 fl (6.2-12.0); Monocyte# 0.62 X10^3/uL; Monocyte% 9.2 % (0-10); NRBC Flagged by Analyzer 0 % (0-5); Neutrophil # 3.64 X10^3/uL (2.7-7.7); Platelet Count 281 K/mm3 (150-450); RBC Distribution Width CV 13.8 % (11.6-14.6); RBC Distribution Width SD 43.3 fl (35.1-43.9); Red Blood Count 5.08 M/mm3 (4.2-5.4); White Blood Count 6.8 K/mm3 (4.4-11.0)
[2020-02-06 19:19] LABS: ALB/GLOB Ratio 1.1 RATIO (0.9-2.4); AST(SGOT) 19 U/L (15-37); Alanine Aminotransfer ALT/SGPT 25 U/L (13-56); Albumin, Serum 4.2 g/dL (3.2-5.0); Alkaline Phosphatase 98 U/L (45-117); Anion Gap 5 (5-15); BUN 9 mg/dL (7-18); BUN/Creat Ratio 8.8 RATIO (10-20); Calcium,Total 8.9 mg/dL (8.5-10.1); Chloride 110 mmol/L (98-107); Creatinine, Serum 1.02 mg/dL (0.55-1.02); EST Glomerular Filtration Rate 59 mL/min (>60); Est Glom Filt Rate - Afr Amer 71 mL/min (>60); Estimated Creatinine Clearance 43.71 ml/min; Globulin 3.7 g/dL (2.2-4.2); Glucose 129 mg/dL (74-106); Potassium 3.9 mmol/L (3.5-5.1); Protein, Total 7.9 g/dL (6.4-8.2); Sodium Level 142 mmol/L (136-145)
[2020-02-06 19:22] LABS: Lactic Acid 2.1 mmol/L (0.4-1.9)
[2020-02-06] MEDS: 0.9% Normal Saline 1,000 ML 1000 ML IV (20:22)
[2020-02-06 22:43] LABS: Reflex Lactate? Y
== END 2020-02-06 23:05 | disposition home or self-care (01) ==
PROVIDERS: Emergency Provider Emergency Medicine; PCP Internal Medicine
DX: R06.00 Dyspnea, unspecified (principal); Z86.711 Personal history of pulmonary embolism
CPT/HCPCS: 71275; 80053; 83605; 84484; 85025; 87040; 87633; 87635; 94640; 96360; 96361; 99285; G2023; J7030; Q9967; U0003

== ENCOUNTER → 2020-02-27 14:28 | Outpatient (CLI) | payer OTHER, SELFPAY ==
[2020-02-06 17:50] VITALS: BMI 31.1
--- NOTE | 2020-02-27 14:41 | BI_ITS ---
MAMMOGRAPHY - BILATERAL SCREENING REASON FOR EXAM: Female, 59 years old. Routine annual screening examination. PERTINENT HISTORY: Aunts with breast cancer. Remote right excisional breast biopsy. TECHNIQUE: Digital bilateral breast jayce (3D mammographic acquisition) in the CC and MLO projections. 2-D mediolateral oblique (MLO) and craniocaudad (CC) views of both breasts were obtained. CAD: Full Field Digital Mammography with Computer Added Detection was performed. COMPARISON: Comparison is made with prior study dated 05/15/2018 and 09/04/2016. FINDINGS: Breast Composition: The breasts are heterogeneously dense, which may obscure small masses. There are no dominant masses or suspicious calcifications. Stable small benign appearing bilateral axillary lymph nodes. No other significant abnormalities are identified. There has been no significant change since the prior study. BI/SCREEN MAMM (CAD) W/JAYCE BILAT IMPRESSION: Stable bilateral screening mammogram. Yearly follow-up mammogram recommended. (A) ASSESSMENT CATEGORY: BIRADS Category 2: Benign. A letter regarding these results will be sent to the patient by the facility within 30 days. Approximately 10% of breast cancers are not detected by mammography. A normal mammogram should not delay biopsy of a clinically suspicious abnormality. [id number] Electronically Signed: Demetrius Jackson, at 15:52 EDT , Service support ,
== END ==
PROVIDERS: PCP Internal Medicine; Referring Provider Internal Medicine; Visit Provider Internal Medicine
DX: Z12.31 Encounter for screening mammogram for malignant neoplasm of breast (principal); Z80.3 Family history of malignant neoplasm of breast
CPT/HCPCS: 77063; 77067

== ENCOUNTER → 2020-03-10 | Outpatient (CLI) | payer OTHER, SELFPAY ==
[2020-03-10 15:21] VITALS: BMI 31.4
[2020-03-10 18:05] LABS: D-Dimer Quantitative (DVT/PE) 0.33 FEU/ug/m (0.27-0.49)
[2020-03-10 18:30] LABS: BNP,B-Type NATRIURETIC PEPTIDE < 2.0 pg/mL (0-100)
== END | disposition home or self-care (01) ==
LOC: LAB 16:06
PROVIDERS: PCP Internal Medicine; Referring Provider Internal Medicine Cardiovascular Disease; Visit Provider Internal Medicine Cardiovascular Disease
DX: R06.00 Dyspnea, unspecified (principal)
CPT/HCPCS: 36415; 83880; 85379

== ENCOUNTER → 2020-03-31 | Outpatient (CLI) | payer OTHER, SELFPAY ==
[2020-03-10 15:21] VITALS: BMI 31.4
--- NOTE | 2020-03-31 06:31 | ECHOCS_ITS ---
Reason For Study: Dyspnea/SOB Procedure This was a 2D Doppler, Color Flow transthoracic echocardiogram. The study was technically difficult. Contrast injection was performed. Exam performed in department. Left Ventricle Normal LV size. Left ventricular systolic function is normal. The estimated ejection fraction is 65 %. Stage 1 diastolic dysfunction. No regional wall motion abnormalities noted. Right Ventricle Normal RV size. Normal systolic function. Atria Normal left atrium. Normal right atrium. Mitral Valve Normal mitral valve. Tricuspid Valve Normal tricuspid valve. Aortic Valve The aortic valve is not well visualized. Pulmonic Valve Normal pulmonic valve. Great Vessels Normal aortic root. The pulmonary artery is normal size. Normal inferior vena cava. Pericardium/Pleural No pericardial effusion. Medication 22 gauge I.V. with prn adaptor inserted into left arm. Diluted definity 2ml given slow IV push to enhance endocardial definition. MMode/2D Measurements & Calculations LVIDd: 4.6 cm IVSd: 0.82 cm Ao root diam: 2.6 cm LVIDs: 2.5 cm LVPWd: 1.2 cm LA dimension: 3.2 cm RVDd: 2.7 cm FS: 46.5 % LAV(MOD-bp): 32.1 ml LA A4 area: 11.6 cm2 LAV(MOD-bp) Indexed: 18.4 ml/m2 LAV(MOD-sp2): 27.4 ml LAV(MOD-sp4): 28.1 ml Time Measurements MV dec time: 0.27 sec Doppler Measurements & Calculations MV E max jacob: 82.0 cm/sec Lat Peak E' Jacob: 6.0 cm/sec Med Peak E' Jacob: 7.7 cm/sec MV A max jacob: 102.5 cm/sec E/E' lat: 13.7 E/E' med: 10.6 MV E/A: 0.80 MV V2 max: 109.8 cm/sec MV P1/2t max jacob: 83.8 cm/sec Ao V2 max: 145.4 cm/sec MV max P.8 mmHg MV P1/2t: 98.0 msec Ao max P.5 mmHg MV V2 mean: 57.4 cm/sec MV dec slope: 250.5 cm/sec2 MV mean P.6 mmHg MV V2 VTI: 26.7 cm MVA(P1/2t): 2.2 cm2 LV V1 max: 144.1 cm/sec PA V2 max: 94.4 cm/sec LV V1 max P.3 mmHg Interpretation Summary Normal LV size. Left ventricular systolic function is normal. The estimated ejection fraction is 65 %. Stage 1 diastolic dysfunction. Contrast injection was performed. Ordering Physician: Isael Fall Referring Physician: Echo Moses M.D. Performed By: Carlos Garcia RCS
--- NOTE | 2020-03-31 17:45 | STRESSREP ---
Stress Test Report Exercise myocardial perfusion stress test. 59-year-old lady with a history of chest pain. Stress protocol: Resting EKG demonstrates normal sinus rhythm with a rate of 71 bpm normal intervals are noted resting blood pressure 724/80 6 mmHg. The patient exercised according to the regular Andres protocol for a total duration of 6 minutes. The maximum heart rate attained was 130 bpm which was 81% of max impacted heart rate the maximum workload was 7 metabolic equivalents. At rest there were no ST or T wave changes noted to suggest ischemia at peak exercise upsloping ST changes only were noted we did not meet the criteria for ischemia. The resting blood pressure was 124/86 with a peak blood pressure 142/70 with appropriate response to exercise. The test was terminated due to dyspnea. Myocardial perfusion protocol. 11.6 mCi of technetium 99m sestamibi was injected at rest. The patient exercised according to regular Andres protocol for 6 minutes at peak exercise 32.5 mCi of technetium 99m sestamibi was injected stress images were obtained stress and rest images were reconstructed and compared in the short axis vertical long horizontal long axis. Gated images were also obtained P Perfusion SPECT analysis: Review of the stress images demonstrate normal uptake of tracer noted in all areas of the myocardium the resting images similar demonstrate normal uptake of tracer noted in all areas of the myocardium. No areas of reversibility are noted to suggest ischemia no previous infarct is noted. Gated SPECT analysis: The gated ejection fraction is noted to be 80%. Conclusion: Normal exercise myocardial perfusion stress test. Preserved ejection fraction.
== END | disposition home or self-care (01) ==
LOC: CVS 06:31
PROVIDERS: PCP Internal Medicine; Referring Provider Internal Medicine Cardiovascular Disease; Visit Provider Internal Medicine Cardiovascular Disease
DX: R06.00 Dyspnea, unspecified (principal); R06.02 Shortness of breath
CPT/HCPCS: 78452; 93017; 93306; A9500; Q9957; A4216; C8929

== ENCOUNTER → 2020-04-03 | Outpatient (CLI) | payer OTHER, SELFPAY ==
[2020-03-10 15:21] VITALS: BMI 31.4
[2020-04-03 11:06] LABS: ALB/GLOB Ratio 1.1 RATIO (0.9-2.4); AST(SGOT) 15 U/L (15-37); Alanine Aminotransfer ALT/SGPT 25 U/L (13-56); Albumin, Serum 4.1 g/dL (3.2-5.0); Alkaline Phosphatase 93 U/L (45-117); Anion Gap 3 (5-15); BUN 9 mg/dL (7-18); BUN/Creat Ratio 8.7 RATIO (10-20); Calcium,Total 8.8 mg/dL (8.5-10.1); Chloride 109 mmol/L (98-107); Cholesterol 203 mg/dL (200); Creatinine, Serum 1.03 mg/dL (0.55-1.02); EST Glomerular Filtration Rate 58 mL/min (>60); Est Glom Filt Rate - Afr Amer 70 mL/min (>60); Globulin 3.7 g/dL (2.2-4.2); Glucose 105 mg/dL (74-106); High Density Lipoprotein 39 mg/dL; Potassium 4.2 mmol/L (3.5-5.1); Protein, Total 7.8 g/dL (6.4-8.2); Sodium Level 140 mmol/L (136-145); Thyroid Stim Hormone (TSH) 1.95 uIU/mL (0.358-3.74); Triglycerides 148 mg/dL; Very Low Density Lipoprotein 30 mg/dL (5-40)
[2020-04-05 08:17] LABS: Vitamin D,25 Hydroxy 77.3 ng/mL
== END | disposition home or self-care (01) ==
LOC: LAB 09:29
PROVIDERS: PCP Internal Medicine; Referring Provider Internal Medicine Endocrinology, Diabetes & Metabolism; Visit Provider Internal Medicine Endocrinology, Diabetes & Metabolism
DX: E03.8 Other specified hypothyroidism (principal); E78.2 Mixed hyperlipidemia; E55.9 Vitamin D deficiency, unspecified
CPT/HCPCS: 36415; 80053; 80061; 82306; 84443

== ENCOUNTER → 2020-04-29 | Outpatient (CLI) | payer OTHER, SELFPAY ==
[2020-04-20 15:35] VITALS: BMI 31.4
--- NOTE | 2020-05-01 09:10 | PFT ---
INTRODUCTION: The patient is a 59-year-old female that presents for pulmonary function studies secondary to a diagnosis of dyspnea. Respiratory therapy reports good patient effort. Bronchodilators were used during testing. INTERPRETATION: Forced expiration spirometry demonstrates no evidence of a large airways obstructive ventilatory defect. There was no significant response to aerosolized bronchodilators. Spirograms are of good quality and plateau normally. Body plethysmography was performed and reveals lung volumes to be within normal limits. Diffusing capacity by single breath CO is reduced to 57% of predicted. IMPRESSION: Isolated moderate reduction in diffusing capacity, which could be related to an underlying pulmonary vascular disorder, such as pulmonary hypertension.
== END | disposition home or self-care (01) ==
LOC: PSN 07:04
PROVIDERS: PCP Internal Medicine; Referring Provider Physician Assistant Medical; Visit Provider Physician Assistant Medical
DX: R06.00 Dyspnea, unspecified (principal)
CPT/HCPCS: 94060; 94726; 94729

== ENCOUNTER → 2020-08-16 10:29 | Outpatient (CLI) | payer OTHER, SELFPAY ==
[2020-05-26 14:16] VITALS: BMI 32.5
[2020-08-16 12:44] LABS: AST(SGOT) 19 U/L (15-37); Alanine Aminotransfer ALT/SGPT 27 U/L (13-56); Albumin, Serum 3.9 g/dL (3.2-5.0); Alkaline Phosphatase 97 U/L (45-117); Anion Gap 7 (5-15); BUN 8 mg/dL (7-18); BUN/Creat Ratio 7.8 RATIO (10-20); Calcium,Total 8.2 mg/dL (8.5-10.1); Chloride 105 mmol/L (98-107); Cholesterol 191 mg/dL (200); Creatinine, Serum 1.02 mg/dL (0.55-1.02); EST Glomerular Filtration Rate 58 mL/min (>60); Est Glom Filt Rate - Afr Amer 71 mL/min (>60); Globulin 3.8 g/dL (2.2-4.2); Glucose 94 mg/dL (74-106); High Density Lipoprotein 39 mg/dL; Potassium 3.8 mmol/L (3.5-5.1); Protein, Total 7.7 g/dL (6.4-8.2); Sodium Level 140 mmol/L (136-145); Thyroid Stim Hormone (TSH) 0.49 uIU/mL (0.358-3.74); Triglycerides 146 mg/dL; Very Low Density Lipoprotein 29 mg/dL (5-40)
[2020-08-16 13:20] LABS: Hepatitis C Antibody Non-Reactive (Nonreactive); Vitamin D,25 Hydroxy 35.8 ng/mL
[2020-08-18 16:10] LABS: PROEL- A/G Ratio 1.2 (0.7-1.7); PROEL- Albumin 3.8 g/dL (2.9-4.4); PROEL- Alpha-1 Globulin 0.2 g/dL (0.0-0.4); PROEL- Alpha-2 Globulin 0.7 g/dL (0.4-1.0); PROEL- Beta Globulin 1.3 g/dL (0.7-1.3); PROEL- Gamma Globulin 1.1 g/dL (0.4-1.8); PROEL- Globulin, Total 3.3 g/dL (2.2-3.9); PROEL- TOTAL PROTEIN 7.1 g/dL (6.0-8.5); PROELU- Albumin, Urine 37.8 % (.); PROELU- Alpha-1-Globulin,Ur 4.2 % (.); PROELU- Alpha-2-Globulin,Ur 13.6 % (.); PROELU- Beta Globulin, Ur 35.5 % (.); PROELU- Gamma Globulin, Ur 8.9 % (.); Total Protein, Ur 33.6 mg/dL (Not Estab.)
== END ==
PROVIDERS: PCP Internal Medicine; Referring Provider Internal Medicine Endocrinology, Diabetes & Metabolism; Visit Provider Internal Medicine Endocrinology, Diabetes & Metabolism
DX: E03.8 Other specified hypothyroidism (principal); E78.2 Mixed hyperlipidemia; N28.9 Disorder of kidney and ureter, unspecified; Z11.59 Encounter for screening for other viral diseases
CPT/HCPCS: 36415; 80053; 80061; 82306; 84165; 84166; 84443; 86803

== ENCOUNTER → 2020-09-03 12:23 | Outpatient (CLI) | payer OTHER, SELFPAY ==
[2020-05-26 14:16] VITALS: BMI 32.5
[2020-09-03 12:44] VITALS: PULSE 102; PULSE 104; PULSE 111; PULSE 112; PULSE 113; PULSE 115; PULSE 116; O2SAT 94; O2SAT 95; O2SAT 96
--- NOTE | 2020-09-05 06:36 | PCM.PSN.6M ---
PSN 6 Minute Walk Test - 6 Minute Walk Test 6 Minute Walk Test: 6 Minute Walk Test PSN:6-Minute Walk Test Start: 09/03/20 12:44 Freq: Status: Active Protocol: RESP.6MINW Document 09/03/20 12:44 SUNIL (Rec: 09/03/20 12:46 SUNIL [id number]) 6 Minute Walk Test Date Performed 09/03/20 Time Performed 12:30 Height 5 ft 1 in Weight: 170 lb Weight in Pounds 170.[address]: Andres Marsh Assistive device used: None Pre-test Oxygen Delivery Method Room Air Pulse Ox (%) 95 Pulse Rate (60-100 beats/min) 102 H Dyspnea Sue Scale (0-10) 0 Exertion Sue Scale (6-20) 6 1st minute Oxygen Delivery Method Room Air Pulse Ox (%) 94 Pulse Rate (60-100 beats/min) 111 H 2nd minute Oxygen Delivery Method Room Air Pulse Ox (%) 94 Pulse Rate (60-100 beats/min) 112 H 3rd minute Oxygen Delivery Method Room Air Pulse Ox (%) 95 Pulse Rate (60-100 beats/min) 113 H 4th minute Oxygen Delivery Method Room Air Pulse Ox (%) 94 Pulse Rate (60-100 beats/min) 113 H 5th minute Oxygen Delivery Method Room Air Pulse Ox (%) 94 Pulse Rate (60-100 beats/min) 115 H 6th minute Oxygen Delivery Method Room Air Pulse Ox (%) 94 Pulse Rate (60-100 beats/min) 116 H Dyspnea Sue Scale (0-10) 0 Exertion Sue Scale (6-20) 11 Post-test Oxygen Delivery Method Room Air Pulse Ox (%) 96 Pulse Rate (60-100 beats/min) 104 H Full Laps Walked 20 Partial Lap, Number of Tiles Walked 25 Total Distance Walked (ft) 1205 - Interpretation Interpretation: The patient ambulated 1205 feet over the course of 6 minutes beginning on room air without assistive devices or breaks. Pretesting oxygen saturation was noted to be 95% on room air. With ambulation, the bam oxygen saturation was 94%. There was no significant exertional oxygen desaturation. - Recommendations Recommendations: There is no indication for the use of supplemental oxygen at this time.
== END ==
PROVIDERS: PCP Internal Medicine; Referring Provider Internal Medicine Critical Care Medicine; Visit Provider Internal Medicine Critical Care Medicine
DX: R06.00 Dyspnea, unspecified (principal)
CPT/HCPCS: 94618

== ENCOUNTER → 2020-09-17 06:57 | Outpatient (CLI) | payer OTHER, SELFPAY ==
[2020-05-26 14:16] VITALS: BMI 32.5
--- NOTE | 2020-09-17 11:32 | PFT ---
INTRODUCTION: The patient is a 59-year-old female that presents for pulmonary function studies secondary to a diagnosis of dyspnea. Respiratory therapy reports good patient effort. Bronchodilators were used during testing. INTERPRETATION: Forced expiration spirometry demonstrates no evidence of a large airways obstructive ventilatory defect. There was no significant response to aerosolized bronchodilators. Spirograms are of good quality and plateau normally. Body plethysmography was performed and reveals lung volumes to be within normal limits. Diffusing capacity by single breath CO is also within normal limits. When compared to previous pulmonary function studies from April 2020 there has been a 12% improvement in FEV1 and a 36% improvement in DLCO. IMPRESSION: Grossly normal pulmonary function studies. There has been significant improvement in the patient's PFTs since April 2020 as noted above.
== END ==
PROVIDERS: PCP Internal Medicine; Referring Provider Internal Medicine Critical Care Medicine; Visit Provider Internal Medicine Critical Care Medicine
DX: R06.00 Dyspnea, unspecified (principal)
CPT/HCPCS: 94060; 94726; 94729

== ENCOUNTER → 2020-11-01 09:21 | Outpatient (CLI) | payer OTHER, SELFPAY ==
[2020-05-26 14:16] VITALS: BMI 32.5
[2020-10-04 10:37] VITALS: BMI 33.0
[2020-11-01 11:16] LABS: PTHIN 121.1 pg/mL (18.4-80.1)
[2020-11-01 11:21] LABS: Insulin 35.9 mU/L (2.6-37.6); Vitamin D,25 Hydroxy 31.9 ng/mL
[2020-11-01 11:38] LABS: AST(SGOT) 17 U/L (15-37); Alanine Aminotransfer ALT/SGPT 29 U/L (13-56); Albumin, Serum 3.7 g/dL (3.2-5.0); Alkaline Phosphatase 80 U/L (45-117); Anion Gap 5 (5-15); BUN 7 mg/dL (7-18); BUN/Creat Ratio 7.3 RATIO (10-20); Calcium,Total 8.3 mg/dL (8.5-10.1); Chloride 109 mmol/L (98-107); Cholesterol 179 mg/dL (200); Creatinine, Serum 0.96 mg/dL (0.55-1.02); EST Glomerular Filtration Rate 63 mL/min (>60); Est Glom Filt Rate - Afr Amer 76 mL/min (>60); Globulin 3.6 g/dL (2.2-4.2); Glucose 113 mg/dL (74-106); High Density Lipoprotein 36 mg/dL; Potassium 3.8 mmol/L (3.5-5.1); Protein, Total 7.3 g/dL (6.4-8.2); Sodium Level 139 mmol/L (136-145); Thyroid Stim Hormone (TSH) 1.56 uIU/mL (0.358-3.74); Triglycerides 208 mg/dL; Very Low Density Lipoprotein 42 mg/dL (5-40)
== END ==
PROVIDERS: PCP Internal Medicine; Referring Provider Internal Medicine; Visit Provider Internal Medicine
DX: E03.8 Other specified hypothyroidism (principal); M85.89 Other specified disorders of bone density and structure, multiple sites; N20.0 Calculus of kidney; E21.5 Disorder of parathyroid gland, unspecified; E55.9 Vitamin D deficiency, unspecified; N28.9 Disorder of kidney and ureter, unspecified; E78.2 Mixed hyperlipidemia; R73.09 Other abnormal glucose; E78.5 Hyperlipidemia, unspecified
CPT/HCPCS: 36415; 80053; 80061; 82306; 83525; 83970; 84443; 86335

== ENCOUNTER → 2020-11-03 | Outpatient (CLI) | payer OTHER, SELFPAY ==
[2020-10-04 10:37] VITALS: BMI 33.0
== END | disposition home or self-care (01) ==
PROVIDERS: PCP Internal Medicine; Referring Provider Nurse Practitioner Adult Health; Visit Provider Nurse Practitioner Adult Health
DX: N20.0 Calculus of kidney (principal); E03.8 Other specified hypothyroidism
CPT/HCPCS: 81050

== ENCOUNTER → 2021-01-01 10:51 | Outpatient (CLI) | payer OTHER, SELFPAY ==
[2020-10-04 10:37] VITALS: BMI 33.0
[2021-01-01 11:54] LABS: AST(SGOT) 21 U/L (15-37); Alanine Aminotransfer ALT/SGPT 31 U/L (13-56); Alkaline Phosphatase 92 U/L (45-117); Anion Gap 6 (5-15); BUN 11 mg/dL (7-18); BUN/Creat Ratio 8.9 RATIO (10-20); Calcium,Total 10.1 mg/dL (8.5-10.1); Chloride 105 mmol/L (98-107); Creatinine, Serum 1.23 mg/dL (0.55-1.02); EST Glomerular Filtration Rate 47 mL/min (>60); Est Glom Filt Rate - Afr Amer 57 mL/min (>60); Glucose 105 mg/dL (74-106); Potassium 4.3 mmol/L (3.5-5.1); Sodium Level 140 mmol/L (136-145)
[2021-01-03 08:26] LABS: PTHIN 28.5 pg/mL (18.4-80.1)
== END ==
PROVIDERS: PCP Internal Medicine
DX: E03.8 Other specified hypothyroidism (principal); E55.9 Vitamin D deficiency, unspecified; M85.89 Other specified disorders of bone density and structure, multiple sites; E21.5 Disorder of parathyroid gland, unspecified
CPT/HCPCS: 36415; 80053; 82306; 83970

== ENCOUNTER → 2021-01-05 14:22 | Outpatient (CLI) | payer OTHER, SELFPAY ==
[2020-05-26 14:16] VITALS: BMI 32.5
[2020-10-04 10:37] VITALS: BMI 33.0
[2021-01-05 15:47] LABS: Anion Gap 5 (5-15); BUN 8 mg/dL (7-18); BUN/Creat Ratio 6.9 RATIO (10-20); Calcium,Total 9.3 mg/dL (8.5-10.1); Chloride 105 mmol/L (98-107); Creatinine, Serum 1.16 mg/dL (0.55-1.02); EST Glomerular Filtration Rate 50 mL/min (>60); Est Glom Filt Rate - Afr Amer 61 mL/min (>60); Glucose 106 mg/dL (74-106); Potassium 3.5 mmol/L (3.5-5.1); Sodium Level 141 mmol/L (136-145)
== END ==
PROVIDERS: PCP Internal Medicine; Referring Provider Internal Medicine Endocrinology, Diabetes & Metabolism; Visit Provider Internal Medicine Endocrinology, Diabetes & Metabolism
DX: E03.8 Other specified hypothyroidism (principal); M85.89 Other specified disorders of bone density and structure, multiple sites; E21.5 Disorder of parathyroid gland, unspecified; E55.9 Vitamin D deficiency, unspecified
CPT/HCPCS: 36415; 80048

== ENCOUNTER → 2021-04-11 11:22 | Outpatient (CLI) | payer OTHER, SELFPAY ==
[2021-04-11 12:33] LABS: PTHIN 15.5 pg/mL (18.4-80.1)
[2021-04-11 12:36] LABS: Vitamin D,25 Hydroxy 42.6 ng/mL
[2021-04-11 12:49] LABS: ALB/GLOB Ratio 0.9 RATIO (0.9-2.4); AST(SGOT) 18 U/L (15-37); Alanine Aminotransfer ALT/SGPT 32 U/L (13-56); Albumin, Serum 3.7 g/dL (3.2-5.0); Alkaline Phosphatase 79 U/L (45-117); Anion Gap 7 (5-15); BUN 12 mg/dL (7-18); BUN/Creat Ratio 12.9 RATIO (10-20); Calcium,Total 9.9 mg/dL (8.5-10.1); Chloride 104 mmol/L (98-107); Cholesterol 207 mg/dL (200); Creatinine, Serum 0.93 mg/dL (0.55-1.02); EST Glomerular Filtration Rate 65 mL/min (>60); Est Glom Filt Rate - Afr Amer 79 mL/min (>60); Globulin 3.9 g/dL (2.2-4.2); Glucose 110 mg/dL (74-106); High Density Lipoprotein 40 mg/dL; Potassium 4.1 mmol/L (3.5-5.1); Protein, Total 7.6 g/dL (6.4-8.2); Sodium Level 140 mmol/L (136-145); Thyroid Stim Hormone (TSH) 1.17 uIU/mL (0.358-3.74); Triglycerides 137 mg/dL; Very Low Density Lipoprotein 27 mg/dL (5-40)
== END ==
PROVIDERS: PCP Internal Medicine; Referring Provider Internal Medicine Endocrinology, Diabetes & Metabolism; Visit Provider Internal Medicine Endocrinology, Diabetes & Metabolism
DX: E03.8 Other specified hypothyroidism (principal); E21.1 Secondary hyperparathyroidism, not elsewhere classified; E55.9 Vitamin D deficiency, unspecified; E78.2 Mixed hyperlipidemia
CPT/HCPCS: 36415; 80053; 80061; 82306; 83970; 84443

== ENCOUNTER 2021-09-05 11:51 | Outpatient (CLI) | payer OTHER, SELFPAY ==
--- NOTE | 2021-09-05 12:10 | RAD_ITS ---
EXAM: XR ABDOMEN, 1 VIEW CLINICAL INDICATION: HEMATURIA TECHNIQUE: Frontal supine view of the abdomen/pelvis. This report was created using [employer] report generation technology. COMPARISON: None. FINDINGS: LOWER THORAX: Lung bases are clear. GASTROINTESTINAL TRACT: Stool and gas throughout the colon. No bowel obstruction. ORGANS: Unremarkable as visualized. No organomegaly. No abnormal calcifications. BONES/JOINTS: No suspicious lytic or splenic lesions of bone. SOFT TISSUES: No acute pathology. VASCULATURE: Small phlebolith in the right pelvis. RAD/Abdomen Single View IMPRESSION: No acute disease or bowel obstruction. Electronically Signed: Tony Trinidad MD at 0:19 EST ,
== END 2021-09-05 23:59 | disposition home or self-care (01) ==
LOC: RAD 11:55
PROVIDERS: PCP Internal Medicine; Referring Provider Registered Nurse; Visit Provider Registered Nurse
DX: R31.29 Other microscopic hematuria (principal)
CPT/HCPCS: 74018

== ENCOUNTER 2021-10-08 08:37 | Outpatient (CLI) | payer OTHER, SELFPAY ==
[2021-10-08 08:41] LABS: Mucous, Urine 0 SEEN /hpf (<or=2+)
[2021-10-08 09:29] LABS: Color, Urine Yellow (Yellow); Glucose, Dipstick Normal (Normal); Ketone-Dipstick 5 mg/dl (Negative); Leukocyte Esterase-Dipstick 500 /ul (Negative); Nitrite-Dipstick Negative (Negative); Occult Blood-Urine 10 /ul (Negative); Protein-Dipstick 15 mg/dl (Negative); Specific Gravity, Urine 1.025 (1.002-1.030); Urine Bilirubin Dipstick Negative (Negative); Urine Clarity Sl. Cloudy (Clear); Urine Urobilinogen 1 mg/dl (Normal)
[2021-10-08 09:42] LABS: Red Blood Cells-Urine 0-5 SEEN /hpf (0-5); Squamous Epithelial Cells - UA 0-5 SEEN /hpf (5-10); White Blood Cells 10-25 SEEN /hpf (0-5)
[2021-10-08 09:43] LABS: Bacteria 1+ /hpf (None Seen)
[2021-10-08 10:20] LABS: AST(SGOT) 12 U/L (15-37); Alanine Aminotransfer ALT/SGPT 26 U/L (13-56); Albumin, Serum 3.8 g/dL (3.2-5.0); Alkaline Phosphatase 83 U/L (45-117); Anion Gap 4 (5-15); BUN 11 mg/dL (7-18); BUN/Creat Ratio 11.2 RATIO (10-20); Calcium,Total 8.5 mg/dL (8.5-10.1); Chloride 106 mmol/L (98-107); Creatinine, Serum 0.98 mg/dL (0.55-1.02); EST Glomerular Filtration Rate 61 mL/min (>60); Est Glom Filt Rate - Afr Amer 74 mL/min (>60); Globulin 3.7 g/dL (2.2-4.2); Glucose 101 mg/dL (74-106); Potassium 3.6 mmol/L (3.5-5.1); Protein, Total 7.5 g/dL (6.4-8.2); Sodium Level 140 mmol/L (136-145); Thyroid Stim Hormone (TSH) 1.79 uIU/mL (0.358-3.74)
[2021-10-10 09:21] LABS: Vitamin D,25 Hydroxy 34.3 ng/mL
== END 2021-10-08 23:59 | disposition home or self-care (01) ==
PROVIDERS: PCP Internal Medicine; Visit Provider Internal Medicine Endocrinology, Diabetes & Metabolism
DX: E03.8 Other specified hypothyroidism (principal); E21.1 Secondary hyperparathyroidism, not elsewhere classified; E55.9 Vitamin D deficiency, unspecified
CPT/HCPCS: 36415; 80053; 81001; 82306; 83970; 84443

== ENCOUNTER 2021-10-10 15:27 | Outpatient (CLI) | payer OTHER, SELFPAY ==
[2021-10-10 15:57] LABS: D-Dimer Quantitative (DVT/PE) 0.49 FEU/ug/m (0.27-0.49)
[2021-10-10 16:13] LABS: Troponin-I HS 4 pg/mL (3.0-54.0)
== END 2021-10-10 23:59 | disposition home or self-care (01) ==
LOC: LABSPEC 15:28
PROVIDERS: PCP Internal Medicine; Visit Provider Internal Medicine
DX: R06.02 Shortness of breath (principal)
CPT/HCPCS: 84484; 85379

== ENCOUNTER 2021-10-14 07:07 | Outpatient (CLI) | payer OTHER, SELFPAY ==
--- NOTE | 2021-10-14 08:02 | BI_ITS ---
MAMMOGRAPHY - BILATERAL SCREENING REASON FOR EXAM: Female, 60 years old. Routine annual screening examination. PERTINENT HISTORY: Sister with breast cancer. Aunts with breast cancer. TECHNIQUE: Digital bilateral breast jayce (3D mammographic acquisition) in the CC and MLO projections. 2-D mediolateral oblique (MLO) and craniocaudad (CC) views of both breasts were obtained. CAD: Full Field Digital Mammography with Computer Added Detection was performed. COMPARISON: Comparison is made with prior study 02/27/2020 and 05/15/2018. FINDINGS: Breast Composition: The breasts are heterogeneously dense, which may obscure small masses. There are no dominant masses or suspicious calcifications. No other significant abnormalities are identified. There has been no significant change since the prior study. BI/SCRN MAMM (CAD)W/JAYCE BILAT IMPRESSION: Stable bilateral screening mammogram. Yearly follow-up mammogram recommended. (A) ASSESSMENT CATEGORY: BIRADS Category 1: Negative. A letter regarding these results will be sent to the patient by the facility within 30 days. Approximately 10% of breast cancers are not detected by mammography. A normal mammogram should not delay biopsy of a clinically suspicious abnormality. [id number] Electronically Signed: Demetrius Jackson MD at 8:43 EDT ,
== END 2021-10-14 23:59 | disposition home or self-care (01) ==
LOC: OPBI 07:59
PROVIDERS: PCP Internal Medicine; Referring Provider Internal Medicine; Visit Provider Internal Medicine
DX: Z12.31 Encounter for screening mammogram for malignant neoplasm of breast (principal); Z80.3 Family history of malignant neoplasm of breast
CPT/HCPCS: 77063; 77067

== ENCOUNTER 2021-11-03 15:15 | Outpatient (CLI) | payer OTHER, SELFPAY ==
--- NOTE | 2021-11-03 15:26 | US_ITS ---
STUDY: ULTRASOUND OF THE FEMALE PELVIS - COMPLETE REASON FOR EXAM: Female, 60 years old. LOWER ABD-PAIN TECHNIQUE: Transabdominal COMPARISON: CT 11/01/2019 FINDINGS: The uterus is anteverted and is in a midline position. The uterus measures 7.5 x 5 cm. Normal uterine cervix. The endometrium measures 8 mm in thickness, and is hyperechoic. There is no demonstrated endometrial mass. There is no demonstrated myometrial mass. I.U.D. - The patient does not have an I.U.D. The right ovary is visualized. The right ovary measures 3.1 x 2.1 cm. Cyst measures 12 mm There is no visualized right adnexal mass or complex lesion. There is normal arterial and normal venous vascularity. The left ovary is visualized. The left ovary measures 2.1 x 2 cm. There is no left ovarian cyst or ovarian mass. There is no visualized left adnexal mass or complex lesion. There is normal arterial and normal venous vascularity. There is no fluid in the cul-de-sac. Urinary bladder volume of 289cc. 13 mm right-sided urinary bladder stone. US/Pelvic (Non ) IMPRESSION: There is endometrial thickening. This is abnormal for the patient''s age if she is postmenopausal. Direct visualization is recommended to exclude an underlying mass. 13 mm right-sided urinary bladder stone. Electronically Signed: Castro Paul MD at 20:56 EDT ,
== END 2021-11-03 23:59 | disposition home or self-care (01) ==
LOC: US 15:19
PROVIDERS: PCP Internal Medicine; Referring Provider Internal Medicine; Visit Provider Internal Medicine
DX: R10.30 Lower abdominal pain, unspecified (principal)
CPT/HCPCS: 76856

== ENCOUNTER → 2021-11-23 | Outpatient (CLI) | payer OTHER, SELFPAY ==
--- NOTE | 2021-11-23 08:15 | CT_ITS ---
STUDY: CT ABDOMEN AND PELVIS WITHOUT CONTRAST REASON FOR EXAM: Female, 60 years old. CALCULUS OF KIDNEY. Calculus in the urinary bladder. RADIATION DOSAGE (If Supplied By Facility): CTDIvol = ( 11.15 ) mGy, DLP = ( 512.71 ) mGycm TECHNIQUE: Transaxial images were obtained from the dome of the diaphragm to the symphysis pubis without oral contrast, and without intravenous contrast. Sagittal and coronal images were reconstructed. Individualized dose optimization techniques were used for this CT. COMPARISON: Comparison is made with prior ultrasound dated 11/03/[address] scan abdomen and pelvis dated 11/01/2019. FINDINGS: Stable minimal linear scarring at the lung bases. The visualized portions of the heart are within normal limits. There is decreased attenuation of the liver consistent with steatosis. Normal gallbladder and extrahepatic biliary system. Normal spleen. Normal pancreas. Normal bilateral adrenal glands. Normal right kidney. 2.5 mm calculus in the lower pole calyx of the left kidney. Tiny punctate calculus in the upper pole calyx of the left kidney. Normal visualized stomach. Normal small intestine. Moderate amount of fecal material is seen in the colon. Scattered sigmoid diverticula without evidence of diverticulitis. The appendix is visualized and appears normal. Normal abdominal aorta. Normal inferior vena cava. Normal retroperitoneum. Normal urinary bladder. Phleboliths are seen within the pelvis. There is a small umbilical hernia containing fat. Disc space narrowing and degeneration at the L5-S1 level. CT/Abdomen/Pelvis without Cont IMPRESSION: Tiny nonobstructive left intrarenal calculi. No obstructive uropathy seen at this time. Diffuse fatty infiltration of the liver. Electronically Signed: Demetrius Jackson MD at 9:14 EDT ,
== END | disposition home or self-care (01) ==
LOC: CT 08:06
PROVIDERS: PCP Internal Medicine; Visit Provider Urology
DX: N20.0 Calculus of kidney (principal)
CPT/HCPCS: 74176

== ENCOUNTER → 2022-01-02 | Outpatient (CLI) | payer OTHER, SELFPAY ==
--- NOTE | 2022-01-02 10:45 | EMB_PTH ---
PATIENT: SHANIQUA OAKLEY LOC: [facility]#:[id number] AGE/SX: 61/F ROOM: RE01/02/[address]: LASHA Kingston : 1960 BED: DIS: 01/02/2022 SPEC #: [id number] RECD: 01/02/22 13:42 STATUS: ALEXIS REKyrie #: [id number] LASHON: 01/02/22 10:[address]: Bisi Horan NP DEPT: SURGICAL PATHOLOGY RECD BY: Pedrito Torres ENTERED: 01/03/22 12:03 SP TYPE: ENDOM BX/C HORACIO DR: Patti Mackey MD Tissues: Endometrium, NOS Procedures: Surgery Specimen Level IV HEADER OPERATION: Endometrial biopsy PRE-OP DIAGNOSIS: Thickened endometrium TISSUE SUBMITTED: Endometrial biopsy MICROSCOPIC DIAGNOSIS Endometrial biopsy: Strips of benign endometrial epithelium and superficial fragments of benign endometrial tissue with focal cystic changes. Negative for hyperplasia. See comment. CHRISTINA:miquel 01/04/2022 COMMENT Clinical correlation and appropriate follow up are necessary. MICROSCOPIC DESCRIPTION Slides are reviewed. GROSS DESCRIPTION Received is one container labeled with the patient's name and not further designated. The specimen consists of multiple fragments of yee-pink hemorrhagic tissue that in aggregate measure 1.5 x 0.5 x 0.1 cm. The specimen is totally submitted in one cassette. / CHRISTINA:miquel 01/03/2022 TC:4 CPT: 10326
== END | disposition home or self-care (01) ==
LOC: LABSPEC 13:47
PROVIDERS: PCP Internal Medicine; Referring Provider Nurse Practitioner Women's Health; Visit Provider Nurse Practitioner Women's Health
DX: R93.89 Abnormal findings on diagnostic imaging of other specified body structures (principal)
CPT/HCPCS: 88305

== ENCOUNTER → 2022-04-06 | Outpatient (CLI) | payer OTHER, SELFPAY ==
--- NOTE | 2022-04-06 15:59 | US_ITS ---
STUDY: ULTRASOUND OF THE FEMALE PELVIS - COMPLETE REASON FOR EXAM: Female, 61 years old. thickened endometrium LMP: Menopause TECHNIQUE: Transabdominal and Transvaginal TECHNICAL QUALITY: Adequate. COMPARISON: 11/03/2021 FINDINGS: The uterus is anteverted and is in a midline position. The uterus measures 6.8 x 4.7 x 3.2 cm. Normal uterine cervix. The endometrium measures 4 mm in thickness, and is hyperechoic. There is no demonstrated endometrial mass. There is no demonstrated myometrial mass. I.U.D. - The patient does not have an I.U.D. The right ovary is visualized. The right ovary measures 2.3 x 1.6 x 1.1 cm. There is no right ovarian cyst or ovarian mass. There is no visualized right adnexal mass or complex lesion. There is normal arterial and normal venous vascularity. The left ovary is visualized. The left ovary measures 2.8 x 2.0 x 1.7 cm. There is no left ovarian cyst or ovarian mass. There is no visualized left adnexal mass or complex lesion. There is normal arterial and normal venous vascularity. There is no fluid in the cul-de-sac. The pre void volume of the bladder was ml. The post void volume of the bladder was ml. Polycystic ovary disease: No. US/Pelvic (Non ) IMPRESSION: Normal female pelvis. Electronically Signed: Jim Auguste MD at 9:11 EDT ,
--- NOTE | 2022-04-06 15:59 | US_ITS ---
STUDY: ULTRASOUND OF THE FEMALE PELVIS - COMPLETE REASON FOR EXAM: Female, 61 years old. thickened endometrium LMP: Menopause TECHNIQUE: Transabdominal and Transvaginal TECHNICAL QUALITY: Adequate. COMPARISON: 11/03/2021 FINDINGS: The uterus is anteverted and is in a midline position. The uterus measures 6.8 x 4.7 x 3.2 cm. Normal uterine cervix. The endometrium measures 4 mm in thickness, and is hyperechoic. There is no demonstrated endometrial mass. There is no demonstrated myometrial mass. I.U.D. - The patient does not have an I.U.D. The right ovary is visualized. The right ovary measures 2.3 x 1.6 x 1.1 cm. There is no right ovarian cyst or ovarian mass. There is no visualized right adnexal mass or complex lesion. There is normal arterial and normal venous vascularity. The left ovary is visualized. The left ovary measures 2.8 x 2.0 x 1.7 cm. There is no left ovarian cyst or ovarian mass. There is no visualized left adnexal mass or complex lesion. There is normal arterial and normal venous vascularity. There is no fluid in the cul-de-sac. The pre void volume of the bladder was ml. The post void volume of the bladder was ml. Polycystic ovary disease: No. US/Transvaginal Non- IMPRESSION: Normal female pelvis. Electronically Signed: Jim Auguste MD at 9:11 EDT ,
== END | disposition home or self-care (01) ==
LOC: US 15:57
PROVIDERS: PCP Internal Medicine; Visit Provider Nurse Practitioner Women's Health
DX: Z78.0 Asymptomatic menopausal state (principal); R93.89 Abnormal findings on diagnostic imaging of other specified body structures
CPT/HCPCS: 76830; 76856

== ENCOUNTER → 2022-05-20 | Outpatient (CLI) | payer OTHER, SELFPAY ==
[2022-05-20 16:37] LABS: AST(SGOT) 15 U/L (15-37); Alanine Aminotransfer ALT/SGPT 30 U/L (13-56); Albumin, Serum 3.9 g/dL (3.2-5.0); Alkaline Phosphatase 88 U/L (45-117); Anion Gap 8 (5-15); BUN 15 mg/dL (7-18); BUN/Creat Ratio 14.9 RATIO (10-20); Calcium,Total 9.4 mg/dL (8.5-10.1); Chloride 105 mmol/L (98-107); Creatinine, Serum 1.01 mg/dL (0.55-1.02); EST Glomerular Filtration Rate 59 mL/min (>60); Est Glom Filt Rate - Afr Amer 71 mL/min (>60); Globulin 3.8 g/dL (2.2-4.2); Glucose 113 mg/dL (74-106); Protein, Total 7.7 g/dL (6.4-8.2); Sodium Level 140 mmol/L (136-145)
[2022-05-22 08:14] LABS: PTHIN 40.6 pg/mL (18.4-80.1)
[2022-05-22 08:15] LABS: Vitamin D,25 Hydroxy 30.3 ng/mL
== END | disposition home or self-care (01) ==
LOC: LAB 10:57
PROVIDERS: PCP Internal Medicine; Visit Provider Internal Medicine Endocrinology, Diabetes & Metabolism
DX: E03.8 Other specified hypothyroidism (principal); E21.1 Secondary hyperparathyroidism, not elsewhere classified; E55.9 Vitamin D deficiency, unspecified
CPT/HCPCS: 36415; 80053; 82306; 83970; 84443

== ENCOUNTER 2022-07-25 09:14 | Emergency (ER) | payer OTHER, SELFPAY ==
[2022-07-25 09:16] VITALS: BP 135/64; PULSE 81; RESP 14; TEMP 36.8; O2SAT 97; BMI 31.7
--- NOTE | 2022-07-25 09:48 | EKG12_ITS ---
Test Reason : ARM PIT PAIN Blood Pressure : / mmHG Vent. Rate : 074 BPM Atrial Rate : 074 BPM P-R Int : 170 ms QRS Dur : 074 ms QT Int : 384 ms P-R-T Axes : 015 064 091 degrees QTc Int : 426 ms Normal sinus rhythm T-wave abnormality: Consider myocardial ischemia: lateral Confirmed by MARIE PALMER, NICOLE ([id number]), offline editor BELINDA MANCERA ([id number]) on 07/27/2022 9:20:38 AM Referred By: Confirmed By:NICOLE SALAZAR MD
--- NOTE | 2022-07-25 09:49 | EX.ED.UPPERE ---
HPI History of Present Illness Chief Complaint: Upper Extremity Injury Informant: patient Onset/Context/Timing Onset: Hours (1-2) Context: Gradual Onset (While drying off and getting out of the shower noticed) Timing: Continuous Quality of Pain: Aching Location: Right arm and into right neck Current Severity: Mild Maximum Severity: Moderate Worsened by: Unclear to patient Relieved by: Nothing in particular Associated Symptoms Associated Symptoms: Negative for Parasthesia, Weakness or Loss of Funtion Narrative Narrative: Patient states she has chronic right shoulder pain but this morning she noticed that it was extending down the lateral aspect of her right upper arm and into her right periscapular area, and right lateral back. She denies any injury. She states this was a little unusual, and cannot tell if this is related to her chronic right shoulder issue, or if this was something cardiac which is her primary reason for coming. She does not have a history of heart problems, she does not take medications for hypertension, hyperlipidemia, diabetes, she is a non-smoker, there is no significant family history of heart disease at young ages. She denies any chest discomfort, dyspnea, jaw discomfort, palpitations, lightheadedness, sweating, or any other systemic symptoms. No recent illness. No recent leg swelling. [facility] Medical History ADHD (attention deficit hyperactivity disorder) Back pain Deep vein blood clot of right lower extremity Dyspnea on minimal exertion Fibromyalgia Glaucoma Hemorrhoids History of anxiety History of pulmonary embolus (PE) (2009) Hypothyroidism Kidney stones Parathyroid abnormality Home Medications calcium citrate 200 mg calcium-vitamin D3 6.25 mcg (250 unit) tablet 1 ea PO DAILY 03/13/19 [History Last Taken 08/19/19] duloxetine 60 mg capsule,delayed release 60 mg PO DAILY 03/13/19 [History Last Taken 08/19/19] lamotrigine 200 mg tablet 200 mg PO QHS 03/13/19 [History Last Taken 08/19/19] latanoprost 0.005 % eye drops 1 drp EACH EYE DAILY 03/13/19 [History Last Taken 08/19/19] olanzapine 2.5 mg tablet 2.5 mg PO QHS 03/13/19 [History Last Taken 08/19/19] atomoxetine 25 mg capsule (Strattera) 25 mg PO DAILY 03/10/20 [History Last Taken Unknown] levothyroxine 75 mcg capsule 75 mcg PO DAILY 03/10/20 [History Last Taken Unknown] potassium citrate 10 mEq (1,080 mg) tablet,extended release 10 meq PO TID 03/10/20 [History Last Taken Unknown] vitamin B complex (B Complex-Vitamin B12 tablet) 1 tab PO DAILY 03/10/20 [History Last Taken Unknown] clonidine HCl 0.1 mg tablet 0.1 mg PO DAILY 05/26/20 [History Last Taken Unknown] albuterol sulfate 90 mcg/actuation aerosol inhaler (Ventolin HFA) 2 puff inhalation Q4H PRN shortness of breath or wheezing #18 grams 04/12/21 [Rx Last Taken Unknown] cholecalciferol (vitamin D3) 50 mcg (2,000 unit) capsule 50 mcg PO DAILY 01/02/22 [History Last Taken Unknown] budesonide-formoterol HFA 80 mcg-4.5 mcg/actuation aerosol inhaler (Symbicort) 2 puff inhalation BID #3 ea 05/02/22 [Rx Last Taken Unknown] Allergy/AdvReac Type Severity Reaction Status Date / Time bee venom protein (honey bee) Allergy Anaphylaxis Verified 07/25/22 09:17 monosodium glutamate [msg] Allergy VERTIGO Verified 07/25/22 09:17 quetiapine [From Seroquel] Allergy Other Verified 07/25/22 09:17 Family History (Updated 01/02/22 @ 10:17 by Zahraa Harper) Mother Heart disease CHF Sister Breast cancer Brother ALS (amyotrophic lateral sclerosis) Surgical History H/O parathyroidectomy History of lithotripsy Social History household members: none current occupational status: employed current occupation: [employer] Smoking Status: Never smoker alcohol intake: current alcohol intake frequency: holidays/special occasions only substance use type: does not use diet: vegetarian what type of physical activity do you participate in: none seatbelt use: always do you feel safe at home: Yes additional social history: single ROS ROS ED Constitutional Constitutional ED: Denies chills or fever(s) Eyes Eyes: Denies change in vision or diplopia ENT ENT ED: Denies rhinorrhea or sore throat Cardiovascular Cardiovascular: Denies chest pain or palpitations Respiratory/Chest Respiratory/Chest: Denies cough or dyspnea Gastrointestinal Gastrointestinal: Denies abdominal pain, diarrhea, nausea or vomiting Genitourinary Genitourinary ED: Denies dysuria or hematuria Musculoskeletal Musculoskeletal: Reports extremity pain and other Details: neck discomfort, resolved now ; Denies back pain Integumentary Denies abscess or rash Neurologic Neurologic: Denies headache(s), paresthesias or weakness Psychiatric Psychiatric: Denies anxiety or suicidal thoughts EXAM Physical Exam Const Vital Signs: 07/25/22 09:16 Temperature 98.2 F Temperature Source Temporal Pulse Rate 81 Respiratory Rate 14 Blood Pressure 135/64 H Blood Pressure Mean 87 Pulse Ox 97 Oxygen Delivery Method Room Air Positive well nourished and well developed General Appearance ED: well developed and NAD HEENT Reports moist mucous membranes normocephalic and atraumatic Eyes PERRL and EOMs intact bilaterally Neck full ROM and supple Neck Narrative: Patient can move head in all directions, she is creating some increased discomfort in her posterior neck with doing so. General: Negative for tenderness Chest Wall inspection of chest normal and palpation of chest normal Resp normal respiratory effort and clear to auscultation bilaterally Cardio regular rate, regular rhythm and no murmurs Rate: Negative for tachycardic GI non-tender and non-distended Auscultation: normoactive bowel sounds Palpation: soft Back/Spine no CVA tenderness General Back: other FROM Extremity normal to inspection Extremity Narrative: Negative Neer and negative [place]. Shoulder nontender. No decreased sensation anywhere in the right upper extremity. Able to move fully, without any severe discomfort. General Extremety ED: Negative for edema, pulses abnormal or tenderness General Extremity: Negative for edema or pulses abnormal Neuro oriented x3, CN's II-XII intact bilaterally and no sensory deficits noted Sensorium / Orientation: awake and alert Motor Exam: strength 5/5 throughout Psych mental status grossly normal Attitude: No agitated Mood & Affect: anxious; Negative for depressed or tearful Skin no rashes or lesions noted and no wounds MDM MDM MDM Narrative Medical decision making narrative: HEART = 0, 0, 1, 0, 0 = 1. I think this is all likely musculoskeletal, however I do not think it is unreasonable to perform a cardiac work-up in order to rule out atypical symptoms in this older female, although she does not have risk factors. EKG mitral rotation is normal, as is the rest of her lab work, including initial troponin with a level of 4. 2 hours later we repeated it, and it is 4 again, for a negative delta. Given her risk low to begin with, I think this is reassuring enough to discharge home with close outpatient follow-up which is what she is preferring. She was offered ibuprofen here and a prescription for pain medication, which we considered. She declined both. She is stable for discharge. Rhythm Strip Rhythm Strip: Sinus Rhythm Rate: 80 Ectopy: None EKG Initial EKG: Attestation: I personally reviewed and interpreted this EKG as follows: Interpretation: Sinus Rhythm and No Acute Injury Pattern Comments: normal EKG Discharge Plan Triage Chief Complaint: Upper Extremity Injury ED Provider: Chet Grider Dx/Rx/DC Orders Clinical Impression: Acute pain of right shoulder, Neck pain on right side Instructions: Shoulder Problems Prescriptions: No Action vitamin B complex [B Complex-Vitamin B12] Tablet 1 tab PO DAILY potassium citrate 10 mEq (1,080 mg) tablet extended release 10 meq PO TID levothyroxine 75 mcg capsule 75 mcg capsule 75 mcg PO DAILY atomoxetine [Strattera] 25 mg capsule 25 mg PO DAILY clonidine HCl 0.1 mg tablet 0.1 mg PO DAILY albuterol sulfate [Ventolin HFA] 90 mcg/actuation HFA aerosol inhaler 2 puff inhalation Q4H PRN (Reason: shortness of breath or wheezing) Qty: 18 6RF cholecalciferol (vitamin D3) 50 mcg (2,000 unit) capsule 50 mcg PO DAILY latanoprost 0.005 drops 1 drp EACH EYE DAILY lamotrigine 200 tablet 200 mg PO QHS olanzapine 2.5 tablet 2.5 mg PO QHS duloxetine 60 MG capsule,delayed release(DR/EC) 60 mg PO DAILY calcium citrate-vitamin D3 1 EACH tablet 1 ea PO DAILY budesonide-formoterol [Symbicort] 80-4.5 mcg/actuation HFA aerosol inhaler 2 puff INHALATION BID Qty: 3 3RF Primary Care Provider: Patti Mackey Referrals: Patti Mackey MD [Primary Care Provider] - 1-2 Weeks Disposition Disposition: Home, Self Care
[2022-07-25 10:15] LABS: Absolute Lymphocyte Count 1.63 X10^3/uL (0.83-4.51); Basophil# 0.03 X10^3/uL; Basophil% 0.6 % (0-1); Eosinophil# 0.15 X10^3/uL; Eosinophils% 2.8 % (0-5); Hematocrit 44.1 % (37-47); Hemoglobin 14.7 g/dL (12.0-15.0); Lymphocyte # 1.63 X10^3/ul (0.83-4.51); Lymphocyte % 30.9 % (19-41); Mean Corp Hgb Conc 33.3 g/dL (32-36); Mean Corpuscular Hgb 28.9 pg (27.0-32.0); Mean Corpuscular Volume 86.8 fL (81-99); Mean Platelet Vol. 9.8 fl (6.2-12.0); Monocyte% 7.6 % (0-10); NRBC Flagged by Analyzer 0 % (0-5); Neutrophil # 3.03 X10^3/uL (2.7-7.7); Neutrophil % 57.3 % (47-70); Platelet Count 270 K/mm3 (150-450); RBC Distribution Width CV 14.4 % (11.6-14.6); RBC Distribution Width SD 46.2 fl (35.1-43.9); Red Blood Count 5.08 M/mm3 (4.2-5.4); White Blood Count 5.3 K/mm3 (4.4-11.0)
[2022-07-25 10:29] LABS: Anion Gap 3 (5-15); BUN 11 mg/dL (7-18); BUN/Creat Ratio 11.5 RATIO (10-20); Chloride 107 mmol/L (98-107); Creatinine, Serum 0.96 mg/dL (0.55-1.02); EST Glomerular Filtration Rate 63 mL/min (>60); Est Glom Filt Rate - Afr Amer 76 mL/min (>60); Estimated Creatinine Clearance 45.26 ml/min; Glucose 137 mg/dL (74-106); Potassium 4.3 mmol/L (3.5-5.1); Sodium Level 139 mmol/L (136-145); Troponin-I HS (w/2H Reflex) 4 pg/mL (3.0-54.0)
[2022-07-25 12:07] LABS: Reflex Troponin-HS? (from REC) Y
[2022-07-25 12:42] LABS: Troponin-I HS 4 pg/mL (3.0-54.0)
[2022-07-25 13:38] VITALS: BP 114/69; PULSE 76; RESP 14; O2SAT 100
== END 2022-07-25 13:39 | disposition home or self-care (01) ==
PROVIDERS: Emergency Provider Emergency Medicine; PCP Internal Medicine; Visit Provider Emergency Medicine
DX: M25.511 Pain in right shoulder (principal); M54.2 Cervicalgia
CPT/HCPCS: 80048; 84484; 85025; 93005; 99284; A4216

== ENCOUNTER → 2022-11-15 | Outpatient (CLI) | payer OTHER, SELFPAY ==
[2022-11-15 08:57] LABS: Vitamin D,25 Hydroxy 40.8 ng/mL
[2022-11-15 09:04] LABS: ALB/GLOB Ratio 1.1 RATIO (0.9-2.4); AST(SGOT) 23 U/L (15-37); Alanine Aminotransfer ALT/SGPT 27 U/L (13-56); Albumin, Serum 3.8 g/dL (3.2-5.0); Alkaline Phosphatase 82 U/L (45-117); Anion Gap 4 (5-15); BUN 11 mg/dL (7-18); BUN/Creat Ratio 11.4 RATIO (10-20); Chloride 107 mmol/L (98-107); Creatinine, Serum 0.96 mg/dL (0.55-1.02); EST Glomerular Filtration Rate 62 mL/min (>60); Est Glom Filt Rate - Afr Amer 75 mL/min (>60); Globulin 3.5 g/dL (2.2-4.2); Glucose 135 mg/dL (74-106); Potassium 3.9 mmol/L (3.5-5.1); Protein, Total 7.3 g/dL (6.4-8.2); Sodium Level 136 mmol/L (136-145); Thyroid Stim Hormone (TSH) 0.86 uIU/mL (0.358-3.74)
== END | disposition home or self-care (01) ==
LOC: LAB 08:01
PROVIDERS: PCP Internal Medicine; Referring Provider Internal Medicine Endocrinology, Diabetes & Metabolism; Visit Provider Internal Medicine Endocrinology, Diabetes & Metabolism
DX: E03.8 Other specified hypothyroidism (principal); E55.9 Vitamin D deficiency, unspecified
CPT/HCPCS: 36415; 80053; 82306; 84443

== ENCOUNTER → 2023-01-25 | Outpatient (CLI) | payer OTHER, SELFPAY ==
--- NOTE | 2023-01-25 12:18 | BI_ITS ---
MAMMOGRAPHY - BILATERAL SCREENING REASON FOR EXAM: Female, 62 years old. Routine annual screening examination. PERTINENT HISTORY: Sister with breast cancer. Prior right excisional breast biopsy. Aunts with breast cancer. TECHNIQUE: Digital bilateral breast jayce (3D mammographic acquisition) in the CC and MLO projections. 2-D mediolateral oblique (MLO) and craniocaudad (CC) views of both breasts were obtained. CAD: Full Field Digital Mammography with Computer Added Detection was performed. COMPARISON: Comparison is made with prior study dated October 14, 2021 and February 27, 2020. FINDINGS: Breast Composition: The breasts are heterogeneously dense, which may obscure small masses. There are no dominant masses or suspicious calcifications. Stable small benign-appearing bilateral axillary lymph nodes. No other significant abnormalities are identified. There has been no significant change since the prior study. BI/SCRN MAMM (CAD)W/JAYCE BILAT IMPRESSION: Stable bilateral screening mammogram. Yearly follow-up mammogram recommended. (A) ASSESSMENT CATEGORY: BIRADS Category 2: Benign. A letter regarding these results will be sent to the patient by the facility within 30 days. Approximately 10% of breast cancers are not detected by mammography. A normal mammogram should not delay biopsy of a clinically suspicious abnormality. [id number] Electronically Signed: Demetrius Jackson MD at 13:01 EDT ,
== END | disposition home or self-care (01) ==
PROVIDERS: PCP Internal Medicine; Referring Provider Internal Medicine; Visit Provider Internal Medicine
DX: Z12.31 Encounter for screening mammogram for malignant neoplasm of breast (principal); Z80.3 Family history of malignant neoplasm of breast
CPT/HCPCS: 77063; 77067

== ENCOUNTER → 2023-03-09 | Outpatient (CLI) | payer OTHER, SELFPAY ==
--- NOTE | 2023-03-09 14:19 | MRI_ITS ---
STUDY: MRI BRAIN WITH AND WITHOUT CONTRAST REASON FOR EXAM: Female, 62 years old. FAMILY HX OF BRAIN ANEURYSM,HOWELL TECHNIQUE: Standardized multiplanar fat and water weighted pulse sequences were obtained. IV 15 ml CLARISCAN was administered for the contrast portion of the examination. COMPARISON: None. FINDINGS: Normal size of the ventricles and extra-axial spaces for the patient''s age. Normal white matter tracts of the supratentorial brain. There is no evidence for recent intracranial ischemia or other cause of cytotoxic edema on diffusion weighted imaging (DWI). Normal T2* images of the brain without demonstrated susceptibility artifact. There is no demonstrated hemosiderin stain. Normal bilateral basal ganglia. Normal thalami. There is no extra-axial fluid accumulation. Normal flow voids within the major intracranial circulation suggesting patency by spin echo criteria. Normal venous enhancement. There is no enhancing intra-axial or extra-axial abnormality. There is no demonstrated focal brain parenchymal lesions or enhancing abnormalities. No abnormal thickening or enhancement of the meninges or dura. Normal sella turcica, pituitary gland, infundibular stalk, optic chiasm and hypothalamus. Normal tectal plate and pineal gland. Normal midbrain, roc and medulla. Normal cerebellum. Normal basal cisterns. Normal bilateral temporal bones. Normal bilateral internal auditory canals. No demonstrated orbital abnormality, within the constraints of a routine brain study. Normal visualized paranasal sinuses. Normal calvarium and skull base. Normal visualized soft tissue structures. Normal visualized upper cervical spine. MRI/Brain W/WO Contrast IMPRESSION: Normal unenhanced and enhanced MRI of the brain. Electronically Signed: Fernando Galarza MD at 16:00 EDT ,
--- NOTE | 2023-03-09 14:38 | MRI_ITS ---
STUDY: MRA OF THE HEAD WITHOUT CONTRAST REASON FOR EXAM: Female, 62 years old. FAMILY HX ANEURYSM TECHNIQUE: 3-D [id number]-vl-tpoviu (TOF) imaging was performed with MIPs. The study was performed unenhanced. COMPARISON: MRI of the brain dated March 09, 2023 FINDINGS: Normal bilateral petrous carotid arteries. There is ectatic elongation and tortuosity of the right cavernous carotid artery, without a demonstrated hemodynamically significant stenosis. There is ectatic elongation and tortuosity of the left cavernous carotid artery, without a demonstrated hemodynamically significant stenosis. Normal right A1 segments of the anterior cerebral artery. Normal left A1 segments of the anterior cerebral artery. Normal intact anterior communicating artery (ACOM). Normal bilateral A2 segments of the anterior cerebral arteries. Normal right M1 and M2 segments of the middle cerebral arteries, with a normal M1 bifurcation. Normal left M1 and M2 segments of the middle cerebral arteries, with a normal M1 bifurcation. Normal right posterior communicating artery (PCOM). There is non-visualization of the left posterior communicating artery (PCOM). There is a small atretic right vertebral artery with a dominant left vertebral artery. Normal basilar artery with a normal basilar bifurcation. The visualized bilateral superior cerebellar (SCA) arteries are normal. Normal bilateral P1, P2 and visualized P3 segments of the posterior cerebral arteries. There is no demonstrated aneurysm of the [place]. There is no major vessel occlusion or hemodynamically significant stenosis. There is no demonstrated abnormality of the visualized brain. MRI/MRA Head ONLY without Contrast IMPRESSION: Normal MRA of the head Electronically Signed: Fernando Galarza MD at 16:03 EDT ,
[2023-03-09 14:59] LABS: CREATININE FINGERSTICK 0.9 mg/dL (0.55-1.02); EGFR FINGERSTICK > 60.0000 mL/min (>60)
== END | disposition home or self-care (01) ==
LOC: MRI 14:14
PROVIDERS: PCP Internal Medicine; Referring Provider Internal Medicine; Visit Provider Internal Medicine
DX: G44.89 Other headache syndrome (principal); Z82.49 Family history of ischemic heart disease and other diseases of the circulatory system
CPT/HCPCS: 70544; 70553; A9575

== ENCOUNTER → 2023-04-02 | Outpatient (CLI) | payer OTHER, SELFPAY ==
[2023-04-02 12:31] LABS: ALB/GLOB Ratio 1.2 RATIO (0.9-2.4); AST(SGOT) 19 U/L (15-37); Alanine Aminotransfer ALT/SGPT 31 U/L (13-56); Albumin, Serum 4.2 g/dL (3.2-5.0); Alkaline Phosphatase 84 U/L (45-117); Anion Gap 7 (5-15); BUN 18 mg/dL (7-18); BUN/Creat Ratio 17.5 RATIO (10-20); Calcium,Total 8.9 mg/dL (8.5-10.1); Chloride 106 mmol/L (98-107); Cholesterol 187 mg/dL (200); Creatinine, Serum 1.03 mg/dL (0.55-1.02); EST Glomerular Filtration Rate 57 mL/min (>60); Est Glom Filt Rate - Afr Amer 69 mL/min (>60); Globulin 3.5 g/dL (2.2-4.2); Glucose 97 mg/dL (74-106); High Density Lipoprotein 43 mg/dL; Potassium 4.2 mmol/L (3.5-5.1); Protein, Total 7.7 g/dL (6.4-8.2); Sodium Level 139 mmol/L (136-145); Triglycerides 102 mg/dL; Very Low Density Lipoprotein 20 mg/dL (5-40)
== END | disposition home or self-care (01) ==
LOC: LAB 10:49
PROVIDERS: PCP Internal Medicine; Referring Provider Internal Medicine Endocrinology, Diabetes & Metabolism; Visit Provider Internal Medicine Endocrinology, Diabetes & Metabolism
DX: E78.2 Mixed hyperlipidemia (principal); E03.8 Other specified hypothyroidism
CPT/HCPCS: 36415; 80053; 80061

== ENCOUNTER 2023-04-30 09:30 | Outpatient (RCR) | payer OTHER, SELFPAY ==
--- NOTE | 2023-03-12 12:13 | HP.PTEVAL ---
Patient's Visit Information Visit Information Visit Information: SHANIQUA OAKLEY is a 62 year old F referred to Physical Therapy by Dr. Patti Mackey MD with a diagnosis of Right Shoulder and Elbow Pain. Date of Evaluation: 03/12/23 Physical Therapist: Pau Sanabria DPT Visit Plan Frequency: 2x /Week Duration: 4 Weeks Plan: Focus on Scapular Strength/Stabilization, Lateral Epicondylitis Stretching- Modality of US PRN HEP Given IE: Posture, scapular retractions, upper trap stretching, bilateral ER massage for lateral epicondylitis. Subjective Subjective: Patient reports that her shoulder is painful when she touches it, after she carries things and her ROM isn't full. Its been going on for about 20 years- but its getting worse. Now her elbow is becoming an issue. She thinks that the shoulder is one issue but she also has carpal tunnel. She was also diagnosed with carpal tunnel 15 years ago. 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 Pain is on the lateral aspect of the posterior shoulder- Worst: 7/10 Agg: carrying heavy objects sometimes it just hurts. Eases: Aleve Best: 0/10 dully and achy pains. She feels that the pain does not radiate. She does have neck pain. She has HOWELL- 1x a week- she feels that they are tension HOWELL- Aleve- that seems to help - she gets massages 2x a month. Elbow- on the lateral epicondyle- no radiating pain- aggravated by lifting- Worst: 8/10 but does not last long- Best: 0/10. Wrist does not hurt- she does have N/T in her thumb and first two fingers. She does not wear a brace but she does have one. Sleep: not disturbed. Work: retired. PMHX/Meds: No sigificant changes sine ED visit in July. 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, Elbow: 4/5 with pain, Shoulder 4/5 throughout, Scap: fair Special Tests R Shoulder Empty Can - SS: Positive R Shoulder Belly Press - SupScap: Positive R Shoulder Neer - Impingement: Positive R Shoulder Nassar Eron - Impingement: Positive Balance/Special Test Scores Quick DASH Score: 27.2725 Goals Goal 1:: Patient will be I with HEP and progression Goal Time Frame: 4-6 Weeks Goal 2:: Patient will maintain proper posture t/o tx session to demo increased scap s/s Goal Time Frame: 4-6 Weeks Goal 3:: Patient will lift with proper mechanics Goal Time Frame: 4-6 Weeks Goal 4:: Patient will report 80% improvement Goal Time Frame: 4-6 Weeks Rehabilitation Potential Physical Therapy Diagnosis: Patient presents with hypomobility- she has decreased pain free UE ROM, UE and scapular strength/stabilization and muscular endurance leading to poor posture and increased pain with ADL's. Rehabilitation Potential: Good Anticipated Interventions Patient/Client Instruction: Educate patient on: Benefits of Fitness Program Therapeutic Exercise to Include: Strength training, Endurance training, Agility training, Body mechanics, Postural training, Flexibilty training, Neuromotor development, Dynamic Lumbar Stabilization and Scapular Strength/Stabilization For the Purpose of:: To improve muscle performance and motor function Manual Therapy Techniques to Include: Soft tissue mobilization TENS: Yes Cryotherapy (ice pack, ice massage): Yes Thermo therapy (hot pack): Yes Ultrasound (thermal/non thermal): Yes Text: Thank you for the opportunity to evaluate your patient. For Medicare and Medicare HMO plans, please review the plan of care and approve it. It will need to be FAXED BACK to us at [phone] for Medicare purposes. For Medicare only, by signing this I certify the plan of care. Please let me know if there are questions or concerns regarding this plan of care. Physician Signature: Date:
--- NOTE | 2023-04-05 13:51 | HP.PTREVAL ---
Re-Evaluation Intro: Dr. Patti Mackey MD, It has been my pleasure to treat SHANIQUA OAKLEY over the last 8 visits for Right Shoulder and Elbow Pain. Please see the progress note below for an update on the physical therapy plan of care! Subjective Subjective: PATIENT REPORTS THE PAIN IN HER SHLD AND WRIST IS BETTER. TINGLING IN WRIST IS BETTER TOO BUT STILL THERE. WRIST BRACE MAKES IT WORSE WHEN PUSHING W/C BUT OTHERWISE SEEMS TO HELP. PATIENT REPORTS THE SX'S SHE IS HERE FOR ARE CHRONIC BUT IMPROVING. PATIENT REPORTS COMPLIANCE WITH HEP BUT WOULD LIKE TO KEEP PROGRESSING WITH PT IF POSSIBLE. PATIENT REPORTS CHRONIC HEAD AND NECK PAIN THAT ISN'T CONSTANT AND HAS NOT INCREASED WITH PT. Objective Objective/Function: PATIENT WAS SEEN TODAY FOR RE-ASSESSMENT OF PROGRESS TOWARD THE SET PT GOALS AND THE NEED FOR FURTHER PHYSICAL THERAPY VS READINESS FOR DISCHARGE. PATIENT IS MAKING SLOW PROGRESS TOWARD ALL PT GOALS AND IS A GOOD CANDIDATE TO CONTINUE PT BASED ON PROGRESS MADE AND ROOM FOR FUTHER IMPROVEMENT. SHE IS GETTING STRONGER AND REPORTING LESS PAIN. 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 EMPTY CAN TEST IS NEGATIVE. SHE CONTINUES TO HAVE SOME DECREASED EX KNOWLEDGE AND WOULD BENEFIT FROM CONTINUED PT FOR SAFE PROGRESSION OF STRENGTHENING AND INSTRUCTION IN SELF PROGRESSION POST FORMAL PT. PATIENT IS AGREEABLE. Plan Plan Plan: CONTINUE PT 2X'S A WK X 3-4 WKS FOR R UE STRENGTH PROGRESSION FOCUSING ON SCAPULAR STRENGTH AND STABILIZATION AND INDEP EX PROGRESSION. Balance/Gait/Functional tests Balance/Special Test Scores Quick DASH Score: 27.2725 Goals Goals Goal 1:: Patient will be I with HEP and progression Goal Time Frame: 4-6 Weeks Goal 2:: Patient will maintain proper posture t/o tx session to demo increased scap s/s Goal Time Frame: 4-6 Weeks Goal 3:: Patient will lift with proper mechanics Goal Time Frame: 4-6 Weeks Goal 4:: Patient will report 80% improvement Goal Time Frame: 4-6 Weeks Anticipated Interventions Anticipated Interventions Patient/Client Instruction: Educate patient on: Benefits of Fitness Program Therapeutic Exercise to Include: Strength training, Endurance training, Agility training, Body mechanics, Postural training, Flexibilty training, Neuromotor development, Dynamic Lumbar Stabilization and Scapular Strength/Stabilization For the Purpose of:: To improve muscle performance and motor function Manual Therapy Techniques to Include: Soft tissue mobilization TENS: Yes Cryotherapy (ice pack, ice massage): Yes Thermo therapy (hot pack): Yes Ultrasound (thermal/non thermal): Yes Re-Evaluation Ending Re-evaluation ending: Please do not hesitate to contact me at [phone] by phone or if you have questions or concerns regarding this new plan of care! Sincerely, Sol Barrientos, PT, Cert MDT
--- NOTE | 2023-04-30 10:34 | HP.PTDCSUM ---
Discharge Summary D/C summary: It has been my pleasure to treat SHANIQUA OAKLEY referred by Dr. Patti Mackey MD, with the diagnosis of Right Shoulder and Elbow Pain for a total of 15 visit(s). Discharge Date: Please see the following information for a summary of their discharge status. Subjective Subjective: Patient reports that she feels that its better- she has pain right in the supraspinatus- to the touch and when she lifts heavy bags- she has no pain at rest. When she does her exercises regularly. She plans to joint the gym. She does still have slight elbow pain but she is not wearing the brace. Pain R elbow: Pain Intensity (Out of 10): 2 Scapula: Pain Intensity (Out of 10): 3 Overall Improvement % Improvement: 70 Objective Objective/Function: Posture: good throughout treatment session Palpation: tender along AC Joint ROM: WFL in all planes of the UE and cervical spine Strength: 5/5 throughout UE shoulder and elbow- Environmental Inspector: 65 lbs- Scap: fair plus R Shoulder Empty Can - SS: Negative R Shoulder Belly Press - SupScap: Negative R Shoulder Neer - Impingement: Positive R Shoulder Nassar Eron - Impingement: Positive Goals Goal 1:: Patient will be I with HEP and progression Goal Progress: Goal Met Goal 2:: Patient will maintain proper posture t/o tx session to demo increased scap s/s Goal Progress: Goal Met Goal 3:: Patient will lift with proper mechanics Goal Progress: Goal Met Goal 4:: Patient will report 80% improvement Goal Progress: Progressing Plan Plan: 04/30/23: Discharge to HEP- plans to join [facility] D/C Information d/c sentence: If there are questions or concerns regarding this patient's physical therapy, please feel free to call me at [phone]. Thank you for the referral of this patient. Sincerely, Pau Sanabria, DPT Balance/Gait/Functional tests Balance/Special Test Scores Quick DASH Score: 20.4525 Improvement % Improvement: 70
== END 2023-04-30 10:57 | disposition home or self-care (01) ==
LOC: PT 09:30
PROVIDERS: PCP Internal Medicine; Referring Provider Internal Medicine; Visit Provider Internal Medicine
DX: M25.511 Pain in right shoulder (principal); M25.521 Pain in right elbow
CPT/HCPCS: 97110; 97140; 97162; 97164

== ENCOUNTER → 2023-09-24 | Outpatient (CLI) | payer OTHER, SELFPAY ==
[2023-09-24 15:19] LABS: Absolute Lymphocyte Count 1.78 X10^3/uL (0.83-4.51); Absolute Neutrophil Count 3.3 X10^3/uL (2.0-7.7); Basophil# 0.02 X10^3/uL; Basophil% 0.4 % (0-1); Eosinophil# 0.13 X10^3/uL; Eosinophils% 2.3 % (0-5); Hematocrit 44.6 % (37-47); Lymphocyte # 1.78 X10^3/ul (0.83-4.51); Lymphocyte % 31.4 % (19-41); Mean Corp Hgb Conc 33.6 g/dL (32-36); Mean Corpuscular Hgb 28.7 pg (27.0-32.0); Mean Corpuscular Volume 85.3 fL (81-99); Mean Platelet Vol. 9.8 fl (6.2-12.0); Monocyte# 0.48 X10^3/uL; Monocyte% 8.5 % (0-10); NRBC Flagged by Analyzer 0 % (0-5); Neutrophil # 3.25 X10^3/uL (2.7-7.7); Neutrophil % 57.2 % (47-70); Platelet Count 262 K/mm3 (150-450); RBC Distribution Width SD 43.5 fl (35.1-43.9); Red Blood Count 5.23 M/mm3 (4.2-5.4); White Blood Count 5.7 K/mm3 (4.4-11.0)
[2023-09-24 15:46] LABS: PTHIN 94.1 pg/mL (18.4-80.1)
[2023-09-24 15:52] LABS: Vitamin D,25 Hydroxy 35.8 ng/mL
[2023-09-24 16:11] LABS: ALB/GLOB Ratio 1.1 RATIO (0.9-2.4); AST(SGOT) 23 U/L (15-37); Alanine Aminotransfer ALT/SGPT 33 U/L (13-56); Alkaline Phosphatase 92 U/L (45-117); Anion Gap 5 (5-15); BUN 11 mg/dL (7-18); BUN/Creat Ratio 10.6 RATIO (10-20); Calcium,Total 8.9 mg/dL (8.5-10.1); Chloride 108 mmol/L (98-107); Cholesterol 185 mg/dL (200); Creatinine, Serum 1.04 mg/dL (0.55-1.02); EST Glomerular Filtration Rate 57 mL/min (>60); Est Glom Filt Rate - Afr Amer 68 mL/min (>60); Globulin 3.7 g/dL (2.2-4.2); Glucose 93 mg/dL (74-106); High Density Lipoprotein 42 mg/dL; Protein, Total 7.7 g/dL (6.4-8.2); Sodium Level 138 mmol/L (136-145); Thyroid Stim Hormone (TSH) 1.39 uIU/mL (0.358-3.74); Triglycerides 121 mg/dL; Very Low Density Lipoprotein 24 mg/dL (5-40)
[2023-09-24 16:22] LABS: Hemoglobin A1c 5.7 % (3.8-5.6)
[2023-09-24 16:23] LABS: Microalbumin:Creatinine Ratio 27.1 mg/g CRE (<30 mg/g CRE)
== END | disposition home or self-care (01) ==
LOC: LAB 14:33
PROVIDERS: PCP Internal Medicine; Referring Provider Internal Medicine; Visit Provider Internal Medicine
DX: E78.2 Mixed hyperlipidemia (principal); E21.1 Secondary hyperparathyroidism, not elsewhere classified; E55.9 Vitamin D deficiency, unspecified; E03.9 Hypothyroidism, unspecified; R80.9 Proteinuria, unspecified; E88.810 Metabolic syndrome
CPT/HCPCS: 36415; 80053; 80061; 82043; 82306; 82570; 83036; 83970; 84443; 85025

== ENCOUNTER → 2023-12-10 | Outpatient (CLI) | payer MEDICARE, OTHER, SELFPAY ==
[2023-12-10 13:00] LABS: PTHIN 63.6 pg/mL (18.4-80.1)
[2023-12-10 13:04] LABS: ALB/GLOB Ratio 1.1 RATIO (0.9-2.4); AST(SGOT) 21 U/L (15-37); Alanine Aminotransfer ALT/SGPT 37 U/L (13-56); Alkaline Phosphatase 68 U/L (45-117); Anion Gap 4 (5-15); BUN 8 mg/dL (7-18); BUN/Creat Ratio 7.3 RATIO (10-20); Calcium,Total 9.1 mg/dL (8.5-10.1); Chloride 106 mmol/L (98-107); EST Glomerular Filtration Rate 53 mL/min (>60); Est Glom Filt Rate - Afr Amer 64 mL/min (>60); Globulin 3.7 g/dL (2.2-4.2); Glucose 99 mg/dL (74-106); Potassium 3.9 mmol/L (3.5-5.1); Protein, Total 7.7 g/dL (6.4-8.2); Sodium Level 137 mmol/L (136-145)
[2023-12-10 13:05] LABS: Vitamin D,25 Hydroxy 53.6 ng/mL
== END | disposition home or self-care (01) ==
LOC: LAB 11:51
PROVIDERS: PCP Internal Medicine; Referring Provider Internal Medicine Endocrinology, Diabetes & Metabolism; Visit Provider Internal Medicine Endocrinology, Diabetes & Metabolism
DX: E21.1 Secondary hyperparathyroidism, not elsewhere classified (principal); E03.8 Other specified hypothyroidism; E55.9 Vitamin D deficiency, unspecified
CPT/HCPCS: 36415; 80053; 82306; 83970; 84443

== ENCOUNTER → 2024-02-22 | Outpatient (CLI) | payer MEDICARE, BC, SELFPAY ==
--- NOTE | 2024-02-22 12:14 | BI_ITS ---
MAMMOGRAPHY - BILATERAL SCREENING REASON FOR EXAM: Female, 63 years old. Routine annual screening examination. PERTINENT HISTORY: Sister with breast cancer. Aunts with breast cancer. TECHNIQUE: Digital bilateral breast jayce (3D mammographic acquisition) in the CC and MLO projections. 2-D mediolateral oblique (MLO) and craniocaudad (CC) views of both breasts were obtained. CAD: Full Field Digital Mammography with Computer Added Detection was performed. COMPARISON: Comparison is made with prior study of January 25, 2023 and October 14, 2021. FINDINGS: Breast Composition: The breasts are heterogeneously dense, which may obscure small masses. There are no dominant masses or suspicious calcifications. No other significant abnormalities are identified. There has been no significant change since the prior study. BI/SCRN MAMM (CAD)W/JAYCE BILAT IMPRESSION: Stable bilateral screening mammogram. Yearly follow-up mammogram recommended. (A) ASSESSMENT CATEGORY: BIRADS Category 1: Negative. A letter regarding these results will be sent to the patient by the facility within 30 days. Approximately 10% of breast cancers are not detected by mammography. A normal mammogram should not delay biopsy of a clinically suspicious abnormality. [id number] Electronically Signed: Demetrius Jackson MD at 12:56 EDT ,
== END | disposition home or self-care (01) ==
LOC: OPBI 12:12
PROVIDERS: PCP Internal Medicine; Referring Provider Internal Medicine; Visit Provider Internal Medicine
DX: Z12.31 Encounter for screening mammogram for malignant neoplasm of breast (principal)
CPT/HCPCS: 77063; 77067

== ENCOUNTER → 2024-09-26 | Outpatient (CLI) | payer MEDICARE, BC, SELFPAY ==
[2024-09-26 10:13] LABS: ALB/GLOB Ratio 1.4 RATIO (0.9-2.4); AST(SGOT) 21 U/L (<=31); Alanine Aminotransfer ALT/SGPT 25 U/L (<=34); Albumin, Serum 4.3 g/dL (3.4-4.8); Alkaline Phosphatase 91 U/L (35-104); Anion Gap 11 (5-15); BUN 10 mg/dL (4-19); BUN/Creat Ratio 10.5 RATIO (10-20); Calcium,Total 9.1 mg/dL (7.6-11.0); Carbon Dioxide 24.6 mmol/L (21.0-32.0); Chloride 104 mmol/L (98-108); Creatinine, Serum 0.98 mg/dL (0.70-1.20); EST Glomerular Filtration Rate 64 (>60); Globulin 3.1 g/dL (2.2-4.2); Glucose 126 mg/dL (70-99); Potassium 4.1 mmol/L (3.3-5.1); Protein, Total 7.4 g/dL (5.9-8.4); Sodium Level 140 mmol/L (133-145); Total Bilirubin 0.29 mg/dL (0.00-1.30)
[2024-09-26 10:16] LABS: Thyroid Stim Hormone (TSH) 0.842 uIU/mL (0.300-4.200); Vitamin D,25 Hydroxy 25.9 ng/mL (30-100)
== END | disposition home or self-care (01) ==
PROVIDERS: PCP Internal Medicine; Referring Provider Internal Medicine Endocrinology, Diabetes & Metabolism; Visit Provider Internal Medicine Endocrinology, Diabetes & Metabolism
DX: E21.1 Secondary hyperparathyroidism, not elsewhere classified (principal); E03.8 Other specified hypothyroidism; E55.9 Vitamin D deficiency, unspecified
CPT/HCPCS: 36415; 80053; 82306; 84443

== ENCOUNTER → 2024-12-04 | Outpatient (CLI) | payer MEDICARE, BC, SELFPAY ==
[2024-12-04 09:42] LABS: Absolute Lymphocyte Count 2.33 X10^3/uL (0.83-4.51); Absolute Neutrophil Count 3.3 X10^3/uL (2.0-7.7); Basophil# 0.02 X10^3/uL; Basophil% 0.3 % (0-1); Eosinophil# 0.17 X10^3/uL; Eosinophils% 2.7 % (0-5); Hematocrit 43.7 % (37-47); Hemoglobin 14.7 g/dL (12.0-15.0); Lymphocyte # 2.33 X10^3/ul (0.83-4.51); Lymphocyte % 36.9 % (19-41); Mean Corp Hgb Conc 33.6 g/dL (32-36); Mean Corpuscular Hgb 28.7 pg (27.0-32.0); Mean Corpuscular Volume 85.2 fL (81-99); Mean Platelet Vol. 9.8 fl (6.2-12.0); Monocyte% 7.9 % (0-10); NRBC Flagged by Analyzer 0 % (0-5); Neutrophil # 3.27 X10^3/uL (2.7-7.7); Neutrophil % 51.9 % (47-70); Platelet Count 252 K/mm3 (150-450); RBC Distribution Width CV 13.9 % (11.6-14.6); RBC Distribution Width SD 43.4 fl (35.1-43.9); Red Blood Count 5.13 M/mm3 (4.2-5.4); White Blood Count 6.3 K/mm3 (4.4-11.0)
[2024-12-04 10:38] LABS: Microalbumin,Random Urine < 12.0 mg/L (NO RANGE EST.); Microalbumin:Creatinine Ratio UNABLE TO CALCULATE mg/g CRE
[2024-12-04 10:40] LABS: Hemoglobin A1c 5.8 % (<=5.6)
[2024-12-04 10:45] LABS: ALB/GLOB Ratio 1.4 RATIO (0.9-2.4); AST(SGOT) 21 U/L (<=31); Alanine Aminotransfer ALT/SGPT 18 U/L (<=34); Albumin, Serum 4.2 g/dL (3.4-4.8); Alkaline Phosphatase 88 U/L (35-104); Anion Gap 12 (5-15); BUN 9 mg/dL (4-19); BUN/Creat Ratio 10.6 RATIO (10-20); Calcium,Total 8.9 mg/dL (7.6-11.0); Carbon Dioxide 22.5 mmol/L (21.0-32.0); Chloride 106 mmol/L (98-108); EST Glomerular Filtration Rate 71 (>60); Glucose 101 mg/dL (70-99); Potassium 4.2 mmol/L (3.3-5.1); Protein, Total 7.1 g/dL (5.9-8.4); Sodium Level 141 mmol/L (133-145); Total Bilirubin 0.18 mg/dL (0.00-1.30); Vitamin D,25 Hydroxy 30.5 ng/mL (30-100)
[2024-12-08 10:32] LABS: Magnesium 2.2 mg/dL (1.5-2.2)
== END | disposition home or self-care (01) ==
PROVIDERS: PCP Internal Medicine; Referring Provider Internal Medicine; Visit Provider Internal Medicine
DX: E55.9 Vitamin D deficiency, unspecified (principal); E03.9 Hypothyroidism, unspecified; R80.9 Proteinuria, unspecified; E88.810 Metabolic syndrome
CPT/HCPCS: 36415; 80053; 82043; 82306; 82570; 83036; 83735; 84443; 85025

== ENCOUNTER 2025-03-17 07:34 | Emergency (ER) | payer MEDICARE, BC, SELFPAY ==
[2025-03-17 07:35] VITALS: BP 133/83; PULSE 69; RESP 16; TEMP 36.1; O2SAT 99
--- NOTE | 2025-03-17 07:55 | EKG12_ITS ---
Test Reason : CP Blood Pressure : */* mmHG Vent. Rate : 70 BPM Atrial Rate : 70 BPM P-R Int : 206 ms QRS Dur : 76 ms QT Int : 398 ms P-R-T Axes : 69 61 91 degrees QTcB Int : 429 ms Normal sinus rhythm Normal ECG Confirmed by FERMIN VALENCIA ([id number]), editor in chief YUE MACDONALD ([id number]) on 03/18/2025 1:56:21 PM Referred By: Confirmed By: FERMIN VALENCIA
--- NOTE | 2025-03-17 07:55 | ED.VIS.CHEST ---
HPI History of Present Illness Chief Complaint: Chest Pain Narrative Narrative: 64-year-old female past medical history of anxiety, presents with chest pain that began at 6-6 30 this morning, approximately 1 to 1.5 hours ago. She states she awoke with it. When she went to bed yesterday evening, everything was fine. She describes chest tightness anteriorly. She has pain in her back between her shoulder blades. It is not a tearing sensation. She may be nauseated but denies any vomiting, no diaphoresis, no shortness of breath, no leg swelling. She does relate history of DVT and pulmonary emboli approximately 12 years ago from hormonal therapy which she no longer takes. No exacerbating or alleviating factors. She states her symptoms are very mild and she is here to get things checked. She is unsure if this can be related to her anxiety. No recent fevers or chills, no cough, no other symptoms. Non-smoker. [facility] Medical History Dyspnea on minimal exertion Deep vein blood clot of right lower extremity History of pulmonary embolus (PE) (2009) Parathyroid abnormality Kidney stones Back pain Hemorrhoids Glaucoma Hypothyroidism Fibromyalgia ADHD (attention deficit hyperactivity disorder) History of anxiety Home Medications ?Medication ?Instructions ?Recorded ?Last Taken ?Type calcium 200 mg (as 1 ea PO DAILY 03/13/19 08/19/19 History citrate)-vitamin D3 6.25 mcg (250 unit) tablet duloxetine 60 mg capsule,delayed 60 mg PO DAILY 03/13/19 08/19/19 History release lamotrigine 200 mg tablet 200 mg PO QHS 03/13/19 08/19/19 History latanoprost 0.005 % eye drops 1 drp EACH EYE DAILY 03/13/19 08/19/19 History olanzapine 2.5 mg tablet 2.5 mg PO QHS 03/13/19 08/19/19 History atomoxetine 25 mg capsule 25 mg PO DAILY 03/10/20 Unknown History (Strattera) levothyroxine 75 mcg capsule 75 mcg PO DAILY 03/10/20 Unknown History potassium citrate 10 mEq (1,080 10 meq PO TID 03/10/20 Unknown History mg) tablet,extended release vitamin B complex (B 1 tab PO DAILY 03/10/20 Unknown History Complex-Vitamin B12 tablet) clonidine HCl 0.1 mg tablet 0.1 mg PO DAILY 05/26/20 Unknown History cholecalciferol (vitamin D3) 50 50 mcg PO DAILY 01/02/22 Unknown History mcg (2,000 unit) capsule budesonide-formoterol HFA 80 2 puff inhalation BID #3 ea 05/02/22 Unknown Rx mcg-4.5 mcg/actuation aerosol inhaler (Symbicort) semaglutide 0.25 mg or 0.5 mg (2 0.25 mg subcut QWEEK 04/23/23 Unknown History mg/3 mL) subcutaneous pen injector albuterol sulfate 90 mcg/actuation 2 puff inhalation Q4H PRN 05/21/24 Unknown Rx aerosol inhaler (Ventolin HFA) shortness of breath or wheezing #18 grams Allergy/AdvReac Type Severity Reaction Status Date / Time bee venom protein (honey bee) Allergy Anaphylaxis Verified 05/21/24 11:24 monosodium glutamate (msg) Allergy VERTIGO Verified 05/21/24 11:24 quetiapine (From Seroquel) Allergy Other Verified 05/21/24 11:24 Family History Mother Heart disease CHF Sister Breast cancer Brother ALS (amyotrophic lateral sclerosis) Surgical History H/O parathyroidectomy History of lithotripsy Social History household members: none current occupational status: employed current occupation: [employer] Smoking Status: Never smoker alcohol intake: current alcohol intake frequency: holidays/special occasions only substance use type: does not use diet: vegetarian what type of physical activity do you participate in: none seatbelt use: always do you feel safe at home: Yes additional social history: single ROS ROS ED ROS Narrative Review of systems is positive for back pain/pain between her shoulder blades with chest tightness. Positive nausea but no vomiting. No shortness of breath or diaphoresis. No leg swelling. No exacerbating or alleviating factors. EXAM Physical Exam Narrative Exam Narrative: Afebrile. Vital signs noted, nontoxic-appearing. Cardiovascular examination reveals a regular rate and rhythm. Lungs are clear to auscultation bilaterally. Abdomen is soft and nontender with normal active bowel sounds. No guarding or rebound. Neurological examination is nonfocal, nonlateralizing, moves all extremities. Awake, alert, interactive, appropriate. No pedal edema appreciated bilaterally. Const Vital Signs: 03/17/25 07:35 03/17/25 07:36 03/17/25 07:55 Temperature 97.0 F L Temperature Source Temporal Pulse Rate 69 Respiratory Rate 16 Respiratory Effort Normal Blood Pressure 133/83 H Blood Pressure Mean 99 Pulse Ox 99 Oxygen Delivery Method Room Air Room Air 03/17/25 08:34 03/17/25 09:00 03/17/25 10:00 Temperature Temperature Source Pulse Rate 68 86 61 Respiratory Rate 16 18 18 Respiratory Effort Blood Pressure 124/61 H 102/76 112/75 Blood Pressure Mean 82 84 87 Pulse Ox 99 98 98 Oxygen Delivery Method Room Air Room Air Room Air 03/17/25 11:00 Temperature Temperature Source Pulse Rate 64 Respiratory Rate 18 Respiratory Effort Blood Pressure 108/76 Blood Pressure Mean 86 Pulse Ox 99 Oxygen Delivery Method Room Air MDM MDM MDM Narrative Medical decision making narrative: The differential diagnosis includes but not limited to ACS versus bronchitis versus pneumonia versus pneumothorax versus pulmonary embolism. Centrally she is PERC negative, but I will obtain a D-dimer. EKG was obtained and interpreted by myself independently as normal sinus rhythm at 70 bpm without ectopy or acute ST changes. No STEMI. No significant change from previous EKG dated July 25, 2022. Anxiety attack is also in the differential diagnosis as well. I have low suspicion for aortic dissection as her blood pressure is appropriate in the ED, she does not have tearing back pain with radiation, and she has equal radial pulses. I reviewed her laboratory work and she has normal white count of 7.0 with hemoglobin 14.7, hematocrit 43.3, platelet count 244, D-dimer is negative at less than 0.27 so I doubt aortic dissection and I also doubt pulmonary embolism. I do not feel CTA is indicated. Glucose elevated at 124 with normal anion gap of 11. Initial high-sensitivity troponin less than 6 with repeat at 2 hours also being less than 6. Repeat examination shows her resting comfortably. She states she had pain when swallowing her aspirin. She was given Maalox. I do not feel she needed a lidocaine. She may be having more esophageal spasm. Chest x-ray interpreted by myself independently shows no evidence of an acute process, no pneumonia or pneumothorax. I reviewed the radiology report which confirms my independent interpretation. At this point in time, as she has had negative troponins and a negative D-dimer, I feel she can be discharged to follow-up. She was reassured. Return instructions to the emergency department were reviewed. Disposition is discharged home in stable condition. History & Record Review Discussion w/independent historian: Patient Additional record(s) reviewed:: Prior ED visit (Noncontributory to current chief complaint.) Lab Data Attestation: I reviewed the patient's lab results. Labs: Laboratory Results - last 24 hr 03/17/25 03/17/25 07:47 10:23 WBC 7.0 RBC 5.08 Hgb 14.7 Hct 43.3 MCV 85.2 MCH 28.9 MCHC 33.9 RDW Std Deviation 43.2 RDW Coeff of Jennifer 13.9 Plt Count 244 MPV 9.7 Immature Gran % (Auto) 0.100 Neut % (Auto) 54.9 Lymph % (Auto) 35.0 [facility] % (Auto) 7.3 Eos % (Auto) 2.3 Baso % (Auto) 0.4 Absolute Neuts (auto) 3.8 Absolute Lymphs (auto) 2.44 Nucleated RBC % 0 D-Dimer Quant (PE/DVT) < 0.27 L Sodium 141 Potassium 3.8 Chloride 106 Carbon Dioxide 23.8 Anion Gap 11 BUN 10 Creatinine 0.93 Est GFR (MDRD) Non-Af 68 BUN/Creatinine Ratio 10.9 Glucose 124 H Calcium 9.1 Troponin T High Sens < 6 Troponin T Hi Sens 2 Hr < 6 Radiography Diagnostic Testing: Clinical Impression(s) from Imaging Studies Chest X-Ray 03/17/25 08:00 IMPRESSION: No acute process is identified in the chest. Reading Location: [facility] Discharge Plan Triage Chief Complaint: Chest Pain ED Provider: Vaughn Goodman Dx/Rx/DC Orders Clinical Impression: Chest pain, Back pain Instructions: ED Back Pain (Acute or Chronic), ED Chest Pain, Uncertain Cause Prescriptions: No Action vitamin B complex [B Complex-Vitamin B12] Tablet 1 tab PO DAILY potassium citrate 10 mEq (1,080 mg) tablet extended release 10 meq PO TID levothyroxine 75 mcg capsule 75 mcg PO DAILY atomoxetine [Strattera] 25 mg capsule 25 mg PO DAILY clonidine HCl 0.1 mg tablet 0.1 mg PO DAILY cholecalciferol (vitamin D3) 50 mcg (2,000 unit) capsule 50 mcg PO DAILY semaglutide 0.25 mg or 0.5 mg (2 mg/3 mL) pen injector 0.25 mg subcut QWEEK Rx Instructions: for 4 weeks albuterol sulfate [Ventolin HFA] 90 mcg/actuation HFA aerosol inhaler 2 puff inhalation Q4H PRN (Reason: shortness of breath or wheezing) Qty: 18 6RF latanoprost 0.005 drops 1 drp EACH EYE DAILY lamotrigine 200 tablet 200 mg PO QHS olanzapine 2.5 tablet 2.5 mg PO QHS duloxetine 60 MG capsule,delayed release(DR/EC) 60 mg PO DAILY calcium citrate-vitamin D3 1 EACH tablet 1 ea PO DAILY budesonide-formoterol [Symbicort] 80-4.5 mcg/actuation HFA aerosol inhaler 2 puff INHALATION BID Qty: 3 3RF Primary Care Provider: Patti Mackey Referrals: Patti Mackey MD [Primary Care Provider] - 3-5 Days if not improving Activity Restrictions/Additional Instructions: Return to the emergency department with increased pain, new or worsening symptoms. Follow-up with your primary care provider. Print Language: Taiwanese Disposition Disposition: Home, Self Care
--- NOTE | 2025-03-17 08:00 | RAD_ITS ---
PROCEDURE: CHEST 1 VIEW (PORTABLE) 03/17/2025 REASON FOR EXAM: CHEST PAIN TECHNIQUE: Frontal view of the chest. COMPARISON: September 04, 2019 FINDINGS: Heart size and mediastinal configuration are within normal limits. There is no focal infiltrate or consolidation. There is no pneumothorax or effusion. There is no acute bony abnormality. Aortic calcifications are noted. RAD/Chest 1 View (Portable) IMPRESSION: No acute process is identified in the chest. Reading Location: [id number]
[2025-03-17 08:02] LABS: Hematocrit 43.3 % (37-47); Hemoglobin 14.7 g/dL (12.0-15.0); Immature Granulocytes Count 0.010 X10^3/uL (0.0-0.0); Mean Corp Hgb Conc 33.9 g/dL (32-36); Mean Corpuscular Volume 85.2 fL (81-99); Mean Platelet Vol. 9.7 fl (6.2-12.0); NRBC Flagged by Analyzer 0 % (0-5); Platelet Count 244 K/mm3 (150-450); RBC Distribution Width CV 13.9 % (11.6-14.6); RBC Distribution Width SD 43.2 fl (35.1-43.9); Red Blood Count 5.08 M/mm3 (4.2-5.4); White Blood Count 7.0 K/mm3 (4.4-11.0)
[2025-03-17 08:15] LABS: D-Dimer Quantitative (DVT/PE) < 0.27 FEU/ug/m (0.27-0.49)
[2025-03-17 08:28] LABS: Anion Gap 11 (5-15); BUN 10 mg/dL (4-19); BUN/Creat Ratio 10.9 RATIO (10-20); Calcium,Total 9.1 mg/dL (7.6-11.0); Carbon Dioxide 23.8 mmol/L (21.0-32.0); Chloride 106 mmol/L (98-108); Glucose 124 mg/dL (70-99); Potassium 3.8 mmol/L (3.3-5.1); Troponin T High Sensitivity < 6 ng/L (<=14)
[2025-03-17 08:34] VITALS: BP 124/61; PULSE 68; RESP 16; O2SAT 99
[2025-03-17 09:00] VITALS: BP 102/76; PULSE 86; RESP 18; O2SAT 98
[2025-03-17 10:00] VITALS: BP 112/75; PULSE 61; RESP 18; O2SAT 98
[2025-03-17 11:00] VITALS: BP 108/76; PULSE 64; RESP 18; O2SAT 99
[2025-03-17 11:10] LABS: Troponin T High Sens 2 HR < 6 ng/L (<=14)
[2025-03-17 11:23] VITALS: BP 104/78; PULSE 61; RESP 18; TEMP 37.1; O2SAT 99
== END 2025-03-17 11:26 | disposition home or self-care (01) ==
PROVIDERS: Emergency Provider Emergency Medicine; PCP Internal Medicine; Visit Provider Emergency Medicine
DX: R07.9 Chest pain, unspecified (principal); M54.9 Dorsalgia, unspecified; F41.9 Anxiety disorder, unspecified; F90.9 Attention-deficit hyperactivity disorder, unspecified type; Z79.899 Other long term (current) drug therapy; E03.9 Hypothyroidism, unspecified; Z79.890 Hormone replacement therapy
CPT/HCPCS: 71045; 80048; 84484; 85025; 85379; 93005; 96374; 99285; A4216; J2405

== ENCOUNTER → 2025-03-27 | Outpatient (CLI) | payer MEDICARE, BC, SELFPAY ==
[2025-03-27 12:19] LABS: PTHIN 51 pg/mL (11-61)
[2025-03-27 12:41] LABS: AST(SGOT) 22 U/L (<=31); Alanine Aminotransfer ALT/SGPT 21 U/L (<=34); Albumin, Serum 4.3 g/dL (3.4-4.8); Alkaline Phosphatase 83 U/L (35-104); Anion Gap 10 (5-15); BUN 9 mg/dL (4-19); BUN/Creat Ratio 9.0 RATIO (10-20); Calcium,Total 9.3 mg/dL (7.6-11.0); Carbon Dioxide 25.0 mmol/L (21.0-32.0); Chloride 105 mmol/L (98-108); Globulin 2.9 g/dL (2.2-4.2); Glucose 99 mg/dL (70-99); Magnesium 2.0 mg/dL (1.5-2.2); Potassium 4.3 mmol/L (3.3-5.1); Vitamin D,25 Hydroxy 34.9 ng/mL (30-100)
== END | disposition home or self-care (01) ==
LOC: LAB 11:20
PROVIDERS: PCP Internal Medicine; Referring Provider Internal Medicine Endocrinology, Diabetes & Metabolism; Visit Provider Internal Medicine Endocrinology, Diabetes & Metabolism
DX: E21.1 Secondary hyperparathyroidism, not elsewhere classified (principal); E03.8 Other specified hypothyroidism; E55.9 Vitamin D deficiency, unspecified
CPT/HCPCS: 36415; 80053; 82306; 83735; 83970; 84443

== ENCOUNTER → 2025-04-06 | Outpatient (CLI) | payer MEDICARE, BC, SELFPAY ==
[2025-04-06 13:26] LABS: Color, Urine Yellow (Yellow); Glucose, Dipstick Normal (Normal); Ketone-Dipstick Negative (Negative); Leukocyte Esterase-Dipstick Negative /ul (Negative); Nitrite-Dipstick Negative (Negative); Occult Blood-Urine Negative /ul (Negative); Protein-Dipstick Negative (Negative); Specific Gravity, Urine 1.010 (1.002-1.030); Urine Bilirubin Dipstick Negative (Negative)
[2025-04-06 13:58] LABS: Creatinine, Urine (random) 62.10 mg/dL (28.00-217.00); Microalbumin,Random Urine < 12.0 mg/L (<20 mg/L)
== END | disposition home or self-care (01) ==
LOC: LABSPEC 12:23
PROVIDERS: PCP Internal Medicine; Referring Provider Internal Medicine; Visit Provider Internal Medicine
DX: R80.9 Proteinuria, unspecified (principal)
CPT/HCPCS: 81002; 82043; 82570

== ENCOUNTER → 2025-05-11 | Outpatient (CLI) | payer MEDICARE, BC, SELFPAY ==
--- NOTE | 2025-05-11 15:15 | BI_ITS ---
EXAM: SCRN MAMM (CAD)W/JAYCE BILAT DATE: 05/11/2025 CLINICAL HISTORY: F, Age 64 y/o , SCREENING Patient's sister was diagnosed with breast cancer. Patient has aunts with breast cancer. TECHNIQUE: Procedure Code: [id number] Modality: MG Procedure: SCRN MAMM (CAD)W/JAYCE BILAT COMPARISON: Prior exam(s) dated 02/22/2024 and 01/25/2023. FINDINGS: TISSUE DENSITY: There are scattered areas of fibroglandular density. Bilateral Breast Mammographic Findings: No significant masses, calcifications or other abnormalities are identified. Benign-appearing round microcalcifications and secretory type calcifications are seen in both breasts. Stable nodular masslike densities are seen in both breasts. A stable 4 mm well-circumscribed isodense mass in the superior outer, far posterior aspect of the right breast is noted. BI/SCRN MAMM (CAD)W/JAYCE BILAT IMPRESSION: Benign screening mammogram. OVERALL FINAL ASSESSMENT BI-RADS 2: BENIGN RECOMMENDATION: Routine annual follow-up in 1 Year Additional Recommendation none A letter with findings and recommendations will be mailed to the patient. Reading Location: [id number]
== END | disposition home or self-care (01) ==
LOC: OPBI 15:16
PROVIDERS: PCP Internal Medicine; Referring Provider Internal Medicine; Visit Provider Internal Medicine
DX: Z12.31 Encounter for screening mammogram for malignant neoplasm of breast (principal)
CPT/HCPCS: 77063; 77067